=== PATIENT | female | born 1995 | race American Indian/Alaskan Native ===

== ENCOUNTER 2017-12-05 16:02 | Emergency (ER) | payer OTHER ==
[2017-12-05 19:23] LABS: Basophils # (Auto) 0.1 K/mm3 (0.0-0.1); Basophils % (Auto) 0.9 % (0.0-1.8); Eosinophils % (Auto) 0.2 % (0.0-4.3); Hematocrit 40.7 % (30.3-42.9); Lymphocytes # (Auto) 2.1 K/mm3 (1.2-5.4); Lymphocytes % (Auto) 31.3 % (13.4-35.0); Mean Corpuscular HGB Conc 34 % (30-34); Mean Corpuscular Hemoglobin 32 pg (28-32); Mean Corpuscular Volume 93 fl (79-97); Monocytes # (Auto) 0.6 K/mm3 (0.0-0.8); Monocytes % (Auto) 9.2 % (0.0-7.3); Platelet Count 260 K/mm3 (140-440); Red Blood Count 4.38 M/mm3 (3.65-5.03); Red Cell Distribution Width 12.1 % (13.2-15.2)
[2017-12-05 19:39] LABS: Bacteria,Urine 1+ /HPF (Negative); Bilirubin,Urine NEG (Negative); Blood,Urine NEG (Negative); Color,Urine Yellow (Yellow); Mucus,Urine FEW /HPF; Protein,Urine <15 mg/dL mg/dL (Negative); Urobilinogen,Urine < 2.0 mg/dL (<2.0)
[2017-12-05 19:43] LABS: BUN/Creatinine Ratio 10; Blood Urea Nitrogen 5 mg/dL (7-17); Calcium 9.8 mg/dL (8.4-10.2); Hemolysis Index 3
[2017-12-05 19:46] LABS: Amphetamine Screen,Urine PRESUMPTIVE NEGATIVE; Benzodiazepines Screen,Urine PRESUMPTIVE NEGATIVE; Cocaine Screen,Urine PRESUMPTIVE NEGATIVE; Methadone Screen,Urine PRESUMPTIVE NEGATIVE; Opiate Screen,Urine PRESUMPTIVE NEGATIVE
[2017-12-05 20:12] LABS: Cannabinoid Screen,Urine PRESUMPTIVE POSITIVE
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
[2017-12-05] MEDS ORDERED: ATIVAN PO PRN (21:23)
[2017-12-05] MEDS ORDERED: WATER FOR INJ (PF) ONE (23:04)
[2017-12-05] MEDS: GEODON IM PRN (23:51)
[2017-12-06 01:56] LABS: HCG Qualitative,Urine Negative (Negative)
[2017-12-06] MEDS ORDERED: WATER FOR INJ (PF) ONE (20:13)
[2017-12-06] MEDS: GEODON IM PRN (20:15)
[2017-12-07] MEDS: GEODON IM PRN (10:59)
--- NOTE | 2017-12-07 12:04 | Consultation ---
History of Present Illness - Reason for Consult Consult date: 12/07/17 Reason for consult: Mental Health Evaluation Requesting physician: SABRINA MALONE - Chief Complaint Chief complaint: "I am scared" - History of Present Psychiatric Illness 22 y.o. AA female brought in by law enforcement for psychotic, delusional behavior and threatening family members. Today the patient is anxious, paranoid , and delusional during the assessment. She expressed that someone is after her in the hospital. That someone is a "gang member" per the patient. She could not elaborate more about this gang member when asked. She had to be redirected several times to keep her on topic throughout the interview. The patient answers to most questions were not logical. This patient is not a good historian at this. She did deny SI/HI's and AVH's. Medications and Allergies Allergies Allergy/AdvReac Type Severity Reaction Status Date / Time No Known Allergies Allergy Verified 12/05/17 23:14 Active Meds: Active Medications Lorazepam (Ativan) 1 mg PO Q4H PRN PRN Reason: Agitation Ziprasidone (Geodon) 20 mg IM BID PRN PRN Reason: Agitation Last Admin: 12/07/17 10:59 Dose: 20 mg Past psychiatric history - Past Medical History Past Medical History: other (Unable to obtain) Past Surgical History: Other (Unable to obtain) - past Psychiatric treatment and history psychiatric treatment history: Possibly psy treatment in [place] per the patient. She could not confirm or deny a fam psy hx. - Social History Social history: lives with family Mental Status Exam - Vital signs Last Vital Signs Temp 98.6 F 12/07/17 07:50 Pulse 136 H 12/07/17 07:50 Resp 22 12/07/17 07:50 BP 134/87 12/07/17 07:50 Pulse Ox 98 12/07/17 07:50 - Exam Narrative exam: MSE: Appearance: anxious Behavior: regular eye contact Speech: regular rate and tone Mood: "scared" Affect: congruent to mood Thought Process: tangential Thought Content: denies SI/HI's and AVH's, paranoid, delusional Motor Activity: sitting up in bed Cognition: A/O x 3 Insight: poor Judgment: poor Results Result Diagrams: 12/05/17 18:40 12/05/17 18:40 All other labs normal. Assessment and Plan Assessment and plan: Impression: Unspecified Psychosis. Cannabis Use DO. Today the patient is anxious , paranoid, and delusional during the assessment. DDx: R/O Schizophrenia, R/O Bipolar DO with psychosis, R/O Substance Induced Psychosis Recommendation/Plan: Continue 1013 with placement to inpatient psy services. Start Zyprexa 5 mg PO HS for psychosis and Vistaril 25 mg PO BID for anxiety. Attempted to discuss possible metabolic side effects of Zyprexa with patient.
[2017-12-07] MEDS: VISTARIL PO SCH ×3 (13:24→23:15)
[2017-12-07] MEDS ORDERED: K-DUR PO ONE (18:55)
[2017-12-07] MEDS ORDERED: NACL 0.9% 1000 ML 1,000 ML IV ONE (18:55)
--- NOTE | 2017-12-07 18:57 | Emergency Department Report ---
Blank Doc - Documentation Documentation: Patient was denied admission to the mental health facility secondary to elevated heart rate and low potassium. We'll give patient a bolus of fluid and potassium and recheck her potassium and have the monitor her heart rate and vital signs. We'll encourage patient to drink more by mouth fluids
[2017-12-07] MEDS: KCL 10MEQ/100ML 10 MEQ/100 ML BAG IV SCH ×2 (21:30→23:12)
[2017-12-08] MEDS ORDERED: NACL 0.9% 1000 ML 1,000 ML ONE (00:37)
[2017-12-08] MEDS ORDERED: NACL 0.9% 1000 ML 1,000 ML IV ONE (01:12)
--- NOTE | 2017-12-08 01:38 | Emergency Department Report ---
Blank Doc - Documentation Documentation: I was made aware of patient's persistent tachycardia and hypokalemia and refusal by [facility] for acceptance. Patient receiving her first liter of normal saline now heart rate is 113 with several hundred ml remaining. She did receive 20 mEq of potassium via IV since she refuses to take by mouth. Magnesium was added to last lab draw and was within normal range. There was some improvement in patient's heart rate however, she remains tachycardic and has normal tsh. Patient is exhibiting signs and symptoms of psychosis and therefore Geodon IM was given to see if this helps to relax patient and improve tachycardia. EKG performed and shows sinus tachycardia rate [address] elevation or T-wave abnormalities QRS axis LXVI, QRS duration 84. Additional IV potassium ordered. Will reassess after treatment.
[2017-12-08] MEDS: KCL 10MEQ/100ML 10 MEQ/100 ML BAG IV SCH ×2 (02:16→03:50)
[2017-12-08] MEDS ORDERED: ATIVAN IM PRN (02:41)
[2017-12-08] MEDS: VISTARIL PO SCH (10:50)
--- NOTE | 2017-12-08 10:58 | Progress Note ---
Subjective - Reason for Consult Consult date: 12/08/17 Reason for consult: Psychiatry Follow-up - Chief Complaint Chief complaint: "The patient is nonverbal" 22 y.o. AA female brought in by law enforcement for psychotic, delusional behavior and threatening family members. Today the patient is calm, nonverbal with a catatonic presentation, and clenching a bible during the interview. She would not answer any questions when asked. Per the MAR, she refused her PO medication last night. No gestures of SI/HI's. Mental Status Exam - Vital signs Last Vital Signs Temp 98.9 F 12/08/17 02:05 Pulse 92 H 12/08/17 02:05 Resp 16 12/08/17 02:05 BP 119/60 12/08/17 02:05 Pulse Ox 98 12/08/17 02:05 - Exam Narrative exam: MSE: Appearance: calm Behavior: staring with abnormal blank rate Speech: unable to assess Mood: unable to assess Affect: blunted Thought Process: unable to assess Thought Content: unable to assess Motor Activity: sitting up in bed, psychomotor retardation Cognition: unable to assess Insight: unable to assess Judgment: unable to assess Assessment and Plan Impression: Unspecified Psychosis. Cannabis Use DO. Catatonia. Today the patient is non verbal during the assessment. DDx: R/O Schizophrenia, R/O Bipolar DO with psychosis, R/O Substance Induced Psychosis Recommendation/Plan: Continue 1013 with placement to inpatient psy services. Start Zyprexa 5 mg PO HS for psychosis and Ativan 1 mg IM TID for catatonia. Attempted to discuss possible metabolic side effects of Zyprexa with patient. Monitor the patient's oral intake.
[2017-12-08] MEDS: ATIVAN IM SCH ×2 (14:47→23:04)
[2017-12-08] MEDS ORDERED: GEODON IM SCH ×2 (22:00)
[2017-12-09] MEDS: ATIVAN IM SCH (09:55)
[2017-12-09] MEDS ORDERED: ATIVAN PO SCH (10:00)
--- NOTE | 2017-12-09 11:58 | Progress Note ---
Subjective - Reason for Consult Consult date: 12/09/17 Reason for consult: Psychiatry Follow-up - Chief Complaint Chief complaint: "I am scared" 22 y.o. AA female brought in by law enforcement for psychotic, delusional behavior and threatening family members. Today the patient is cooperative during the assessment. She continue to state that a gang member is following her in hospital. She stated that she is scared and fearful at this time. She stated that it's a spiritual warfare going on. She denies SI/HI's and VH's. She would not confirm or deny AH's. She denies any side effects of her medications. Per the staff, the patient is eating her meals. Mental Status Exam - Vital signs Last Vital Signs Temp 98.7 F 12/08/17 21:26 Pulse 96 H 12/08/17 21:26 Resp 17 12/08/17 21:26 BP 119/68 12/08/17 21:26 Pulse Ox 98 12/08/17 10:00 - Exam Narrative exam: MSE: Appearance: cooperative Behavior: blank rate improving Speech: regular rate and tone Mood: "scared" Affect: guarded Thought Process: disorganized, hyper pentecostal Thought Content: denies SI/HI's and VH's, paranoia, delusional Motor Activity: ambulatory Cognition: A/O x 3 Insight: poor Judgment: poor Assessment and Plan Impression: Unspecified Psychosis. Cannabis Use DO. Catatonia is improving. Today the patient is cooperative during the assessment. The patient is experiencing perceptual disturbances. DDx: R/O Schizophrenia, R/O Bipolar DO with psychosis, R/O Substance Induced Psychosis Recommendation/Plan: Continue 1013 with placement to inpatient psy services. Continue Zyprexa 5 mg PO HS for psychosis and modify Ativan 1 mg to PO BID for catatonia. Discussed possible metabolic side effects of Zyprexa with patient.
[2017-12-09] MEDS ORDERED: GEODON IM ONE (14:22)
[2017-12-09] MEDS ORDERED: GEODON IM PRN (14:24)
[2017-12-09 21:32] VITALS: BP 125/66
== END 2017-12-09 21:52 ==
LOC: ED 16:02 → EEVIPCON 16:02 → ED 12-09 21:52
DX: F31.9 Bipolar disorder, unspecified (principal)
CPT/HCPCS: 36415; 80048; 80307; 81001; 81025; 82550; 83735; 84132; 84443; 85025; 96365; 96366; 96372; 99285; G0480; J2060; J3480; J3486; J7030; 80320; 96361; Q0177

== ENCOUNTER 2019-10-10 21:11 | Emergency (ER) | payer MEDICAID ==
[2019-10-10 21:54] LABS: Basophils % (Auto) 0.5 % (0.0-1.8); Eosinophils # (Auto) 0.2 K/mm3 (0.0-0.4); Eosinophils % (Auto) 2.1 % (0.0-4.3); Hematocrit 36.5 % (30.3-42.9); Hemoglobin 12.3 gm/dl (10.1-14.3); Lymphocytes # (Auto) 2.1 K/mm3 (1.2-5.4); Lymphocytes % (Auto) 27.1 % (13.4-35.0); Mean Corpuscular HGB Conc 34 % (30-34); Mean Corpuscular Volume 93 fl (79-97); Monocytes # (Auto) 0.5 K/mm3 (0.0-0.8); Monocytes % (Auto) 6.8 % (0.0-7.3); Platelet Count 259 K/mm3 (140-440); Red Blood Count 3.95 M/mm3 (3.65-5.03); Red Cell Distribution Width 12.3 % (13.2-15.2)
--- NOTE | 2019-10-10 21:56 | Emergency Department Report ---
ED Psych HPI - General Chief Complaint: Psych Stated Complaint: SI Time Seen by Provider: 10/10/19 21:26 Source: EMS Mode of arrival: Stretcher - History of Present Illness Initial Comments: 24 yo femal w/ hx of bipolar d/o with psychotic features presents to ED via EMS for mental health evaluation. Per triage note, family called due to pt stating that she was going to jump off of the balcony and kill herself. EMS states that she was speaking of the devil and God en route. Pt is refusing to speak at this time. Pt will not answer questions. MD Complaint: suicidal ideation -: unknown Associated Psychiatric Symptoms: suicidal ideation Treatments Prior to Arrival: none If Self Harm: admits thoughts of - Related Data Home Medications Medication Instructions Recorded Confirmed Last Taken OLANzapine [ZyPREXA] 10 mg PO DAILY 10/11/19 10/11/19 Unknown Venlafaxine [Effexor 37.5mg tab] 37.5 mg PO DAILY 10/11/19 10/11/19 Unknown busPIRone [Buspar] 10 mg PO BID 10/11/19 10/11/19 Unknown Allergies Allergy/AdvReac Type Severity Reaction Status Date / Time No Known Allergies Allergy Verified 12/05/17 23:14 ED Review of Systems ROS: Stated complaint: SI Other details as noted in HPI Comment: Unobtainable due to pts medical conditions (pt refuses to speak) ED Past Medical Hx - Past Medical History Hx Psychiatric Treatment: Yes (poss. schizophrenia/bipolar) - Surgical History Past Surgical History?: No - Social History Smoking Status: Unknown if ever smoked - Medications Home Medications: Home Medications Medication Instructions Recorded Confirmed Last Taken Type OLANzapine [ZyPREXA] 10 mg PO DAILY 10/11/19 10/11/19 Unknown History Venlafaxine [Effexor 37.5mg tab] 37.5 mg PO DAILY 10/11/19 10/11/19 Unknown History busPIRone [Buspar] 10 mg PO BID 10/11/19 10/11/19 Unknown History ED Physical Exam - General Limitations: Other General appearance: alert, in no apparent distress - Head Head exam: Present: atraumatic, normocephalic - Eye Eye exam: Present: normal appearance, EOMI - ENT ENT exam: Present: mucous membranes moist - Neck Neck exam: Present: normal inspection - Respiratory Respiratory exam: Present: normal lung sounds bilaterally. Absent: respiratory distress - Cardiovascular Cardiovascular Exam: Present: regular rate, normal rhythm - GI/Abdominal GI/Abdominal exam: Absent: distended - Extremities Exam Extremities exam: Present: normal inspection - Neurological Exam Neurological exam: Present: alert, normal gait, other (moves all extremities) - Psychiatric Psychiatric exam: Present: flat affect - Skin Skin exam: Present: warm, dry, intact, normal color ED Course Vital Signs 10/10/19 10/10/19 10/11/19 21:17 21:33 02:22 Temperature 98.5 F 98.3 F Pulse Rate 96 H 86 Respiratory 18 18 18 Rate Blood Pressure 147/70 122/80 Blood Pressure [Left] O2 Sat by Pulse 98 96 Oximetry 10/11/19 19:35 Temperature 98.3 F Pulse Rate 80 Respiratory 16 Rate Blood Pressure Blood Pressure 118/59 [Left] O2 Sat by Pulse 100 Oximetry ED Medical Decision Making - Lab Data Result diagrams: 10/10/19 21:38 10/10/19 21:38 Critical care attestation.: If time is entered above; I have spent that time in minutes in the direct care of this critically ill patient, excluding procedure time. ED Disposition Clinical Impression: Acute psychosis, Suicidal ideation Disposition: DC/TX-65 PSY HOSP/PSY UNIT Is pt being admited?: No Condition: Stable Referrals: PRIMARY CARE, [Primary Care Provider] - 3-5 Days
[2019-10-10 22:13] LABS: BUN/Creatinine Ratio 15; Blood Urea Nitrogen 9 mg/dL (7-17); Calcium 9.1 mg/dL (8.4-10.2); Hemolysis Index 13
[2019-10-11] MEDS ORDERED: diphenhydrAMINE 25 MG CAP PO ONE ×2 (04:31→04:35)
[2019-10-11] MEDS ORDERED: LORazepam 2 MG/ML VIAL IM PRN (11:29)
[2019-10-11] MEDS ORDERED: HALOPERIDOL LACTATE 5 MG/1 ML INJ IM PRN (11:29)
[2019-10-11] MEDS: risperiDONE 1 MG TAB PO SCH ×2 (14:10→22:04)
[2019-10-11] MEDS: LORazepam 0.5 MG TAB PO SCH ×2 (14:10→22:04)
[2019-10-11 21:13] VITALS: BP 118/59
[2019-10-11] MEDS ORDERED: traZODone 50 MG TAB PO SCH (22:00)
[2019-10-11] MEDS ORDERED: MELATONIN 5 MG TAB PO PRN (22:00)
--- NOTE | 2019-10-12 10:20 | Consultation ---
History of Present Illness - Reason for Consult Consult date: 10/12/19 Reason for consult: SI with plan, psycotic features - History of Present Psychiatric Illness Lida Ramsey is a 24y/o female patient who was brought to the ER after family stated she was going to jump off a balcony and kill herself, and states the patient was talking to the devil, per chart. I attempted to interview the patient this morning, the patient is sitting up on her cot in the floor. She has her eyes closed and is reciting the Lord's Prayer out loud. When the patient is done praying she just sits there and did not speak. She does not respond to any questioning. She did not open her eyes. When I walked away, she started back praying out loud again. PAST PSYCHIATRIC HISTORY: Unable to obtain PAST MEDICAL HISTORY: Could not obtain Family Psychiatric History: Unable to obtain SOCIAL HISTORY Unable to obtain REVIEW OF SYSTEMS Unable to obtain MENTAL STATUS EXAMINATION Unable to obtain Assessment Szhizoaffective Disorder MEDICATIONS: Depakote DR 125mg po BID Lorazepam 0.5mg po BID Trazodone 50mg po qhs Increased Risperidone 1mg po BID Melatonin 5mg po qhs prn insomnia Risks, benefits and alternatives of medications discussed with the patient, questions answered and consent obtained from patient. PSYCHOTHERAPY: Supportive psychotherapy provided MEDICAL: Per primary team DELIRIUM PRECAUTIONS: Please re-orient patient frequently, keep lights on during the day, and minimize benzodiazepines and opiates as these medications could worsen patient's confusion. TRIM LINE WORKER: Per Medical Team DISPOSITION: The patient meets the requirement for acute inpatient psychiatric treatment. He may transfer to an acute psychiatric facility once medically cleared. The plan was discussed with the patient, including benefits and possible side effects of prescribed medications. He verbalized agreement and understanding Will continue to follow until the patient is improved enough for discharge or transferred. Thank you for the consult. Please contact with any questions and/or concerns. Medications and Allergies Allergies Allergy/AdvReac Type Severity Reaction Status Date / Time No Known Allergies Allergy Verified 12/05/17 23:14 Home Medications Medication Instructions Recorded Confirmed Last Taken Type OLANzapine [ZyPREXA] 10 mg PO DAILY 10/11/19 10/11/19 Unknown History Venlafaxine [Effexor 37.5mg tab] 37.5 mg PO DAILY 10/11/19 10/11/19 Unknown History busPIRone [Buspar] 10 mg PO BID 10/11/19 10/11/19 Unknown History Active Meds: Active Medications Haloperidol Lactate (Haldol) 5 mg IM Q6H PRN PRN Reason: Agitation Lorazepam (Ativan) 0.5 mg PO BID [facility] Last Admin: 10/11/19 22:04 Dose: Not Given Documented by: Lorazepam (Ativan) 1 mg IM Q6H PRN PRN Reason: Agitation Melatonin (Melatonin) 5 mg PO QHS PRN PRN Reason: Sleep Risperidone (Risperdal) 0.5 mg PO BID [facility] Last Admin: 10/11/19 22:04 Dose: Not Given Documented by: Trazodone HCl (Desyrel) 50 mg PO QHS [facility] Last Admin: 10/11/19 22:04 Dose: Not Given Documented by: Mental Status Exam - Vital signs Last Vital Signs Temp 98.3 F 10/11/19 19:35 Pulse 80 10/11/19 19:35 Resp 16 10/11/19 19:35 BP 118/59 10/11/19 19:35 Pulse Ox 100 10/11/19 19:35 Results Result Diagrams: 10/10/19 21:38 10/10/19 21:38 All other labs normal.
[2019-10-12] MEDS ORDERED: risperiDONE 1 MG TAB PO SCH (10:30)
[2019-10-12] MEDS ORDERED: DIVALPROEX DR 125 MG TAB PO SCH (11:00)
[2019-10-12] MEDS: LORazepam 0.5 MG TAB PO SCH (13:22)
[2019-10-12] MEDS: risperiDONE 1 MG TAB PO SCH (16:20)
== END 2019-10-12 17:00 ==
LOC: ED 21:11
DX: F23 Brief psychotic disorder (principal); R45.851 Suicidal ideations; F25.0 Schizoaffective disorder, bipolar type; Z79.899 Other long term (current) drug therapy
CPT/HCPCS: 36415; 80048; 80320; 84703; 85025; G0480

== ENCOUNTER 2020-08-17 16:52 | Inpatient (IN) | payer MEDICAID ==
--- NOTE | 2020-08-17 18:05 | Ultrasound Report ---
ULTRASOUND OBSTETRIC LIMITED ULTRASOUND BIOPHYSICAL PROFILE INDICATION / CLINICAL INFORMATION: NON REASSURING HEART TONES. COMPARISON: None available. FINDINGS: BREATHING MOVEMENT = 2 GROSS BODY MOVEMENT = 2 TONE = 2 QUALITATIVE AMNIOTIC FLUID VOLUME = 2 TOTAL BIOPHYSICAL SCORE = 8/8 AMNIOTIC FLUID INDEX (cm) = 6.2, decreased PRESENTATION: Cephalic. HEART RATE (beats per minute): 128 ADDITIONAL FINDINGS: None. IMPRESSION: 1. Biophysical Score = 8/8 2. Decreased FERNANDO of 6.2 cm. Signer Name: Myron Calderon MD Signed: 08/17/2020 6:01 PM Workstation Name: [id number]
[2020-08-17] MEDS ORDERED: ACETAMINOPHEN 325 MG TAB PO PRN (18:06)
[2020-08-17] MEDS ORDERED: DOCUSATE SODIUM 100 MG CAP PO PRN (18:06)
[2020-08-17] MEDS ORDERED: ONDANSETRON 4 MG/2 ML INJ IV PRN (18:06)
--- NOTE | 2020-08-17 18:20 | History and Physical Report ---
History of Present Illness Date of examination: 08/17/20 Chief complaint: pt sent from office d/t variables on NST History of present illness: EDC Confirmation: 09/11/2020 Past History : 4 Term Births: 1 Living Children: 1 Para: 1 Spont. Ab: 2 # 1 Delivery date: 2013 Weeks Gestation: 38 labor: no Delivery type: Hours of labor: 1hr Anesthesia type: none Delivery location: ID Infant Sex: Female weight: 5-11 Comments: precipitious laobr- arived to hospital fully dialted Risk Factors: Smoked Tobacco Use: Former smoker Cigarettes: Yes Year quit: 2 weeks ago Smokeless Tobacco Use: Never Drug use: no HIV high-risk behavior: no Alcohol use: no Exercise: no Seatbelt use: 100 % PAP Smear History: Date of Last PAP Smear: 05/24/2015 Results: normal Past Medical History: Bipolar Diseas Past Medical History Abnormal PAP: negative JONI Exposure: negative Infertility: negative Uterine Anomaly: negative Uterine Surgery (not C/S): negative Other Gynecologic Problems: negative Medical History Comments: biopolar d/o schophrenia Family Hx: DM HTN Stroke Breast Ca Lung CA Social Hx: single previous tobacco-currently d/c tobacco Infection History Hx of STD: chlamydia HIV Risk Eval: no Partner hx. of genital herpes: no Varicella/Chicken Pox Status: Immunized Genetic History Congenital Heart Defect: Mom: no Dewayne Disease: Mom: no Thalassemia Mom: no Neural Tube Defect Mom: no Down's Syndrome Mom: no Yoshi-Sachs Mom: no Sickle Cell Disease/Trait Mom: no Hemophilia Mom: no Muscular Dystrophy Mom: no Cystic Fibrosis Mom: no [place] Chorea Mom: no Mental Retardation Mom: no Fragile X Mom: no Other Genetic/Chromosomal Disorder Mom: no Child w/other defect Mom: no Comments/Counseling: autism- foc family cousin Enviromental Exposures Xray Exposure: no Medication, drug, or alcohol use since LMP: no Chemical/Other Exposure: no Exposure to Cat Liter: no Hx of Parvovirus (Fifth Disease): no Occupational Exposure to Children: none Active Medications (reviewed today): PLUS 27-1 MG ORAL TABLET ( VIT-FE FUMARATE-FA) 1 po Current Allergies (reviewed today): No known allergies Past History Past Medical History: other (see HPI) Past Surgical History: other (see HPI) [employer]ENDANT History: other (see HPI) Family/Genetic History: other (HPI) - Obstetrical History Expected Date of Delivery: 09/11/20 Actual Gestation: 36 Week(s) 3 Day(s) : 4 Para: 1 Hx # Term Pregnancies: 1 Number of Pregnancies: 0 Spontaneous Abortions: 2 Induced : 0 Number of Living Children: 1 Medications and Allergies Allergies Allergy/AdvReac Type Severity Reaction Status Date / Time No Known Allergies Allergy Verified 12/05/17 23:14 Home Medications Medication Instructions Recorded Confirmed Last Taken Type OLANzapine [ZyPREXA] 10 mg PO DAILY 10/11/19 10/11/19 Unknown History Venlafaxine [Effexor 37.5mg tab] 37.5 mg PO DAILY 10/11/19 10/11/19 Unknown History busPIRone [Buspar] 10 mg PO BID 10/11/19 10/11/19 Unknown History Review of Systems All systems: negative - Vital Signs Vital signs: Vital Signs Pulse BP 84 110/73 08/17/20 18:13 08/17/20 18:13 Temp Pulse Resp BP Pulse Ox 84 110/73 08/17/20 18:13 08/17/20 18:13 - Physical Exam Breasts: Positive: normal Cardiovascular: Regular rate Lungs: Positive: Normal air movement Abdomen: Positive: normal appearance, soft Genitourinary (Female): Positive: normal external genitalia, normal perenium Vulva: both: normal Vagina: Positive: normal moisture Uterus: Positive: normal size Anus/Rectum: Positive: normal perianal skin Extremities: Positive: normal Deep Tendon Reflex Grade: Normal +2 - Obstetrical FHR: category 1 Uterine Contraction Monitor Mode: External Uterine Contraction Frequency (min): 3-4 Uterine Contraction Duration: 60 Uterine Contraction Pattern: Regular Uterine Tone Measurement Phase: Contraction Uterine Contraction Intensity: Mild Results All other labs normal. Assessment and Plan 25y/o @ 36+3 weeks, admitted for observation overnight for low FERNANDO 6.2, BPP 10/10. Admission orders in EMR. - Patient Problems (1) 36 weeks gestation of Current Visit: Yes Status: Acute (2) GDM (gestational diabetes mellitus) Current Visit: Yes Status: Acute Qualifiers: Trimester: third trimester Plan to address problem: diet controlled GDM accuchecks consistent carb diet (3) Oligohydramnios Current Visit: Yes Status: Acute Qualifiers: Trimester: third trimester Plan to address problem: FERNANDO 6.2 BPP 12/24 IVF hydration overnight and recheck FERNANDO in AM
[2020-08-17] MEDS: LACTATED RINGERS 1,000 ML IV SCH (21:00)
[2020-08-17 22:50] LABS: Basophils % (Auto) 0.3 % (0.0-1.8); Eosinophils # (Auto) 0.1 K/mm3 (0.0-0.4); Hematocrit 34.9 % (30.3-42.9); Hemoglobin 11.5 gm/dl (10.1-14.3); Lymphocytes # (Auto) 1.8 K/mm3 (1.2-5.4); Mean Corpuscular HGB Conc 33 % (30-34); Mean Corpuscular Volume 92 fl (79-97); Monocytes # (Auto) 0.5 K/mm3 (0.0-0.8); Monocytes % (Auto) 5.9 % (0.0-7.3); Platelet Count 239 K/mm3 (140-440); Red Cell Distribution Width 12.7 % (13.2-15.2)
[2020-08-18] MEDS: LACTATED RINGERS 1,000 ML IV SCH ×3 (03:42→14:49)
[2020-08-18] MEDS ORDERED: ACETAMINOPHEN 500 MG TAB PO ONE (05:15)
--- NOTE | 2020-08-18 08:32 | Progress Note ---
Assessment and Plan A: 25 y.o. @ 36.4 wks, Non reactive NST in the office, low FERNANDO in triage. GDM- diet controlled. P: Will continue to monitor monitor tracing. At this time its category 1. Will monitor glucose levels. Currently WNL. Repeat FERNANDO scheduled for this AM. Will formulate plan of care after rpt FERNANDO completed. Subjective - Subjective Date of service: 08/18/20 (Pt states that she is doing well. ) Principal diagnosis: IUP @ 36.4 weeks, low FERNANDO Patient reports: movement normal, no new complaints, no loss of fluid, no vaginal bleeding, no contractions Objective - Vital Signs Vital Signs: Vital Signs - 12hr 08/17/20 08/17/20 08/17/20 21:10 21:50 22:42 Temperature 98.0 F Pulse Rate 90 89 89 Respiratory 20 Rate Blood Pressure 142/64 141/75 139/75 Blood Pressure [Right] O2 Sat by Pulse Oximetry 08/17/20 08/17/20 08/17/20 23:13 23:39 23:40 Temperature Pulse Rate 84 107 H 93 H Respiratory Rate Blood Pressure 111/59 Blood Pressure [Right] O2 Sat by Pulse 83 L 91 Oximetry 08/17/20 08/17/20 08/17/20 23:42 23:45 23:50 Temperature Pulse Rate 93 H 91 H 88 Respiratory Rate Blood Pressure 126/61 Blood Pressure [Right] O2 Sat by Pulse 95 97 Oximetry 08/17/20 08/18/20 08/18/20 23:55 00:00 00:01 Temperature Pulse Rate 98 H 91 H 90 Respiratory Rate Blood Pressure Blood Pressure [Right] O2 Sat by Pulse 97 96 94 Oximetry 08/18/20 08/18/20 08/18/20 00:05 00:10 00:12 Temperature Pulse Rate 92 H 87 88 Respiratory Rate Blood Pressure 121/60 Blood Pressure [Right] O2 Sat by Pulse 97 98 Oximetry 08/18/20 08/18/20 08/18/20 00:15 00:20 00:25 Temperature Pulse Rate 91 H 93 H 91 H Respiratory Rate Blood Pressure Blood Pressure [Right] O2 Sat by Pulse 96 96 97 Oximetry 08/18/20 08/18/20 08/18/20 00:30 00:35 00:40 Temperature Pulse Rate 95 H 92 H 94 H Respiratory Rate Blood Pressure Blood Pressure [Right] O2 Sat by Pulse 96 97 96 Oximetry 08/18/20 08/18/20 08/18/20 00:42 00:45 00:50 Temperature Pulse Rate 93 H 91 H 92 H Respiratory Rate Blood Pressure 120/59 Blood Pressure [Right] O2 Sat by Pulse 97 97 Oximetry 08/18/20 08/18/20 08/18/20 00:55 01:00 01:05 Temperature Pulse Rate 92 H 95 H 98 H Respiratory Rate Blood Pressure Blood Pressure [Right] O2 Sat by Pulse 97 97 97 Oximetry 08/18/20 08/18/20 08/18/20 01:10 01:12 01:15 Temperature Pulse Rate 99 H 90 98 H Respiratory Rate Blood Pressure 143/82 Blood Pressure [Right] O2 Sat by Pulse 97 97 Oximetry 08/18/20 08/18/20 08/18/20 01:20 01:25 01:30 Temperature Pulse Rate 92 H 96 H 99 H Respiratory Rate Blood Pressure Blood Pressure [Right] O2 Sat by Pulse 98 98 96 Oximetry 08/18/20 08/18/20 08/18/20 01:35 01:40 01:43 Temperature Pulse Rate 97 H 98 H 93 H Respiratory Rate Blood Pressure 127/60 Blood Pressure [Right] O2 Sat by Pulse 98 98 Oximetry 08/18/20 08/18/20 08/18/20 01:45 01:50 01:55 Temperature Pulse Rate 92 H 100 H 94 H Respiratory Rate Blood Pressure Blood Pressure [Right] O2 Sat by Pulse 97 97 98 Oximetry 08/18/20 08/18/20 08/18/20 02:14 02:17 02:19 Temperature 98.1 F Pulse Rate 102 H 97 H Respiratory 20 Rate Blood Pressure Blood Pressure [Right] O2 Sat by Pulse 97 94 99 Oximetry 08/18/20 08/18/20 08/18/20 02:24 02:29 02:34 Temperature Pulse Rate 92 H 92 H 91 H Respiratory Rate Blood Pressure Blood Pressure [Right] O2 Sat by Pulse 98 98 98 Oximetry 08/18/20 08/18/20 08/18/20 02:39 02:44 02:49 Temperature Pulse Rate 86 86 89 Respiratory Rate Blood Pressure Blood Pressure [Right] O2 Sat by Pulse 99 99 99 Oximetry 08/18/20 08/18/20 08/18/20 02:54 02:59 03:04 Temperature Pulse Rate 87 91 H 88 Respiratory Rate Blood Pressure Blood Pressure [Right] O2 Sat by Pulse 99 98 99 Oximetry 08/18/20 08/18/20 08/18/20 03:08 03:09 03:13 Temperature Pulse Rate 94 H 92 H Respiratory Rate Blood Pressure Blood Pressure [Right] O2 Sat by Pulse 94 84 90 Oximetry 08/18/20 08/18/20 08/18/20 03:15 03:23 03:32 Temperature Pulse Rate 66 129 H 65 Respiratory Rate Blood Pressure Blood Pressure [Right] O2 Sat by Pulse 91 88 96 Oximetry 08/18/20 08/18/20 08/18/20 03:33 03:38 03:43 Temperature Pulse Rate 94 H 90 86 Respiratory Rate Blood Pressure Blood Pressure [Right] O2 Sat by Pulse 81 L 96 100 Oximetry 08/18/20 08/18/20 08/18/20 03:48 03:51 03:53 Temperature Pulse Rate 87 85 Respiratory Rate Blood Pressure Blood Pressure [Right] O2 Sat by Pulse 98 78 L 100 Oximetry 08/18/20 08/18/20 08/18/20 03:58 04:03 04:09 Temperature Pulse Rate 86 81 78 Respiratory Rate Blood Pressure Blood Pressure [Right] O2 Sat by Pulse 100 98 99 Oximetry 08/18/20 08/18/20 08/18/20 04:14 04:16 04:19 Temperature Pulse Rate 86 80 79 Respiratory Rate Blood Pressure 120/59 Blood Pressure [Right] O2 Sat by Pulse 100 99 Oximetry 08/18/20 08/18/20 08/18/20 04:24 04:50 04:51 Temperature Pulse Rate 85 79 Respiratory Rate Blood Pressure Blood Pressure [Right] O2 Sat by Pulse 98 77 L 98 Oximetry 08/18/20 08/18/20 08/18/20 04:56 05:01 05:06 Temperature Pulse Rate 83 83 95 H Respiratory Rate Blood Pressure Blood Pressure [Right] O2 Sat by Pulse 99 100 99 Oximetry 08/18/20 08/18/20 08/18/20 05:11 05:16 05:21 Temperature Pulse Rate 72 86 76 Respiratory Rate Blood Pressure 123/86 Blood Pressure [Right] O2 Sat by Pulse 99 99 99 Oximetry 08/18/20 08/18/20 08/18/20 05:26 05:31 05:35 Temperature Pulse Rate 80 77 81 Respiratory Rate Blood Pressure Blood Pressure [Right] O2 Sat by Pulse 100 99 94 Oximetry 08/18/20 08/18/20 08/18/20 05:36 05:41 05:44 Temperature Pulse Rate 79 80 Respiratory Rate Blood Pressure 120/84 Blood Pressure [Right] O2 Sat by Pulse 99 100 91 Oximetry 08/18/20 08/18/20 08/18/20 05:46 05:51 05:56 Temperature Pulse Rate 78 78 82 Respiratory Rate Blood Pressure Blood Pressure [Right] O2 Sat by Pulse 100 100 99 Oximetry 08/18/20 08/18/20 08/18/20 06:01 06:06 06:11 Temperature Pulse Rate 76 85 88 Respiratory Rate Blood Pressure Blood Pressure [Right] O2 Sat by Pulse 98 98 100 Oximetry 08/18/20 08/18/20 08/18/20 06:16 06:21 06:26 Temperature Pulse Rate 73 76 72 Respiratory Rate Blood Pressure Blood Pressure [Right] O2 Sat by Pulse 100 100 100 Oximetry 08/18/20 08/18/20 08/18/20 06:31 06:36 06:41 Temperature Pulse Rate 74 75 80 Respiratory Rate Blood Pressure Blood Pressure [Right] O2 Sat by Pulse 100 100 100 Oximetry 08/18/20 08/18/20 08/18/20 06:46 06:51 06:56 Temperature Pulse Rate 76 80 84 Respiratory Rate Blood Pressure Blood Pressure [Right] O2 Sat by Pulse 100 100 100 Oximetry 08/18/20 08/18/20 08/18/20 06:59 07:07 07:12 Temperature Pulse Rate 77 90 91 H Respiratory Rate Blood Pressure 130/60 Blood Pressure [Right] O2 Sat by Pulse 98 98 Oximetry 08/18/20 08/18/20 08/18/20 07:17 07:22 07:27 Temperature Pulse Rate 85 84 93 H Respiratory Rate Blood Pressure Blood Pressure [Right] O2 Sat by Pulse 98 98 99 Oximetry 08/18/20 08/18/20 08/18/20 07:32 07:37 07:42 Temperature Pulse Rate 86 83 87 Respiratory Rate Blood Pressure Blood Pressure [Right] O2 Sat by Pulse 98 98 98 Oximetry 08/18/20 08/18/20 08/18/20 07:47 07:52 07:53 Temperature 97.7 F Pulse Rate 85 85 80 Respiratory 18 Rate Blood Pressure Blood Pressure 108/56 [Right] O2 Sat by Pulse 98 99 98 Oximetry 08/18/20 08/18/20 08/18/20 07:55 07:57 08:02 Temperature Pulse Rate 78 93 H 86 Respiratory Rate Blood Pressure 108/56 Blood Pressure [Right] O2 Sat by Pulse 99 98 Oximetry 08/18/20 08/18/20 08/18/20 08:07 08:12 08:17 Temperature Pulse Rate 88 86 91 H Respiratory Rate Blood Pressure Blood Pressure [Right] O2 Sat by Pulse 98 99 100 Oximetry 08/18/20 08/18/20 08:22 08:27 Temperature Pulse Rate 90 96 H Respiratory Rate Blood Pressure Blood Pressure [Right] O2 Sat by Pulse 100 99 Oximetry - Exam Narrative Exam: Pt denies vaginal bleeding, LOF, ctxs. States that she does not think her water has broken. We discussed plan of care for the day, awaiting rpt FERNANDO results. Pt verbalized understanding and agrees to the plan at this time. Breasts: deferred Cardiovascular: Regular rate Lungs: Normal air movement Abdomen: Present: normal appearance, soft Uterus: Present: normal FHR: category 1, other (Pt has some decelerations throughout the night. ) Uterine Contraction Monitor Mode: External Uterine Contraction Pattern: Absent Extremities: normal - Labs Labs: Abnormal Labs 08/17/20 22:14 RDW 12.7 L Laboratory Results - last 24 hr 08/17/20 08/17/20 08/18/20 22:14 22:14 07:57 WBC 7.8 RBC 3.80 Hgb 11.5 Hct 34.9 MCV 92 MCH 30 MCHC 33 RDW 12.7 L Plt Count 239 Lymph % (Auto) 23.0 [place] % (Auto) 5.9 Eos % (Auto) 1.0 Baso % (Auto) 0.3 Lymph # (Auto) 1.8 [place] # (Auto) 0.5 Eos # (Auto) 0.1 Baso # (Auto) 0.0 Seg Neutrophils % 69.8 Seg Neutrophils # 5.4 POC Glucose 78 Blood Type O POSITIVE Antibody Screen Negative
[2020-08-18] MEDS: PRENATAL VIT27-FE FUMARATE-FOLIC ACID VIT TAB PO SCH (09:39)
--- NOTE | 2020-08-18 10:15 | Ultrasound Report ---
Obstetrical ultrasound limited INDICATION: Evaluate FERNANDO. well-being FINDINGS: The FERNANDO measures 4.9, previously 3.9 on the 08/17/2020 exam. There is a single intrauterine g estation in the cephalic position with a heart rate of 123 bpm IMPRESSION: FERNANDO currently measures 4.9 increased from 3.9 yesterday. Signer Name: Andi Lozano MD Signed: 08/18/2020 10:10 AM Workstation Name: [id number]
--- NOTE | 2020-08-18 12:58 | Event Note ---
Date: 08/18/20 Sono today reads that fernando is "4.9cm increased from 3.9cm on 08/17/20" However, review of the images show that max pocket yesterday was 3.9 NOT THE TOTAL FERNANDO. TOTAL FERNANDO ON 08/17/20 WAS DOCUMENTED TO BE 6.2CM BY SONO PICTURES AND REPORT. PT HAS THEREFORE HAD A DECREASE IN FERNANDO WITH HYDRATION AND BEDREST AND IS NEWLY DIAGNOSED DM THAT HAVE NOT BEEN COMPLIANT WITH CARE. WILL CONSULT MFM AT THIS TIME FOR RECOMMENDATIONS IN TERMS OF MANAGEMENT OF THE OLIGO.
--- NOTE | 2020-08-18 14:52 | Event Note ---
Date: 08/18/20 Spoke with [facility] provider Dr. Richards and recommends delivery at this time due to olig. having varialbe decesl(cat 2 tracing at times), and being 36-37. Copy of recommendations as per Dr. Richards faxed to my office as well as labor and delivery. Will discuss plan of care with pt and address and questions or concerns she may have.
--- NOTE | 2020-08-18 17:26 | Progress Note ---
Assessment and Plan A: 25 y.o. @ 36.4 wks, GDM, Oligohydramnios. Now for IOL. Cervical exam 0.5/50/- 3. P: Will allow pt to shower and eat. Will start IOL with low dose Pitocin. Subjective - Subjective Date of service: 08/18/20 (Explained IOL process and why) Principal diagnosis: IUP @ 36.4 weeks, low FERNANDO Patient reports: movement normal, no new complaints, no loss of fluid, no vaginal bleeding, no contractions Objective - Vital Signs Vital Signs: Vital Signs - 12hr 08/18/20 08/18/20 08/18/20 05:26 05:31 05:35 Temperature Pulse Rate 80 77 81 Respiratory Rate Blood Pressure Blood Pressure [Right] O2 Sat by Pulse 100 99 94 Oximetry 08/18/20 08/18/20 08/18/20 05:36 05:41 05:44 Temperature Pulse Rate 79 80 Respiratory Rate Blood Pressure 120/84 Blood Pressure [Right] O2 Sat by Pulse 99 100 91 Oximetry 08/18/20 08/18/20 08/18/20 05:46 05:51 05:56 Temperature Pulse Rate 78 78 82 Respiratory Rate Blood Pressure Blood Pressure [Right] O2 Sat by Pulse 100 100 99 Oximetry 08/18/20 08/18/20 08/18/20 06:01 06:06 06:11 Temperature Pulse Rate 76 85 88 Respiratory Rate Blood Pressure Blood Pressure [Right] O2 Sat by Pulse 98 98 100 Oximetry 08/18/20 08/18/20 08/18/20 06:16 06:21 06:26 Temperature Pulse Rate 73 76 72 Respiratory Rate Blood Pressure Blood Pressure [Right] O2 Sat by Pulse 100 100 100 Oximetry 08/18/20 08/18/20 08/18/20 06:31 06:36 06:41 Temperature Pulse Rate 74 75 80 Respiratory Rate Blood Pressure Blood Pressure [Right] O2 Sat by Pulse 100 100 100 Oximetry 08/18/20 08/18/20 08/18/20 06:46 06:51 06:56 Temperature Pulse Rate 76 80 84 Respiratory Rate Blood Pressure Blood Pressure [Right] O2 Sat by Pulse 100 100 100 Oximetry 08/18/20 08/18/20 08/18/20 06:59 07:07 07:12 Temperature Pulse Rate 77 90 91 H Respiratory Rate Blood Pressure 130/60 Blood Pressure [Right] O2 Sat by Pulse 98 98 Oximetry 08/18/20 08/18/20 08/18/20 07:17 07:22 07:27 Temperature Pulse Rate 85 84 93 H Respiratory Rate Blood Pressure Blood Pressure [Right] O2 Sat by Pulse 98 98 99 Oximetry 08/18/20 08/18/20 08/18/20 07:32 07:37 07:42 Temperature Pulse Rate 86 83 87 Respiratory Rate Blood Pressure Blood Pressure [Right] O2 Sat by Pulse 98 98 98 Oximetry 08/18/20 08/18/20 08/18/20 07:47 07:52 07:53 Temperature 97.7 F Pulse Rate 85 85 80 Respiratory 18 Rate Blood Pressure Blood Pressure 108/56 [Right] O2 Sat by Pulse 98 99 98 Oximetry 08/18/20 08/18/20 08/18/20 07:55 07:57 08:02 Temperature Pulse Rate 78 93 H 86 Respiratory Rate Blood Pressure 108/56 Blood Pressure [Right] O2 Sat by Pulse 99 98 Oximetry 08/18/20 08/18/20 08/18/20 08:07 08:12 08:17 Temperature Pulse Rate 88 86 91 H Respiratory Rate Blood Pressure Blood Pressure [Right] O2 Sat by Pulse 98 99 100 Oximetry 08/18/20 08/18/20 08/18/20 08:22 08:27 08:32 Temperature Pulse Rate 90 96 H 80 Respiratory Rate Blood Pressure Blood Pressure [Right] O2 Sat by Pulse 100 99 99 Oximetry 08/18/20 08/18/20 08/18/20 08:37 08:42 08:47 Temperature Pulse Rate 88 76 92 H Respiratory Rate Blood Pressure Blood Pressure [Right] O2 Sat by Pulse 98 99 99 Oximetry 08/18/20 08/18/20 08/18/20 08:52 08:57 09:02 Temperature Pulse Rate 77 87 90 Respiratory Rate Blood Pressure Blood Pressure [Right] O2 Sat by Pulse 99 98 98 Oximetry 08/18/20 08/18/20 08/18/20 09:07 09:12 09:17 Temperature Pulse Rate 85 86 91 H Respiratory Rate Blood Pressure Blood Pressure [Right] O2 Sat by Pulse 98 98 98 Oximetry 08/18/20 08/18/20 08/18/20 09:22 09:27 09:32 Temperature Pulse Rate 89 89 103 H Respiratory Rate Blood Pressure Blood Pressure [Right] O2 Sat by Pulse 98 98 99 Oximetry 08/18/20 08/18/20 08/18/20 09:37 09:42 09:47 Temperature Pulse Rate 87 86 86 Respiratory Rate Blood Pressure Blood Pressure [Right] O2 Sat by Pulse 98 99 99 Oximetry 08/18/20 08/18/20 08/18/20 09:52 09:57 10:02 Temperature Pulse Rate 87 101 H 85 Respiratory Rate Blood Pressure Blood Pressure [Right] O2 Sat by Pulse 99 99 98 Oximetry 08/18/20 08/18/20 08/18/20 10:07 10:12 10:17 Temperature Pulse Rate 84 84 84 Respiratory Rate Blood Pressure Blood Pressure [Right] O2 Sat by Pulse 99 98 98 Oximetry 08/18/20 08/18/20 08/18/20 10:21 10:22 10:27 Temperature 97.8 F Pulse Rate 86 89 90 Respiratory 16 Rate Blood Pressure 114/57 Blood Pressure 114/57 [Right] O2 Sat by Pulse 99 98 99 Oximetry 08/18/20 08/18/20 08/18/20 10:32 10:37 10:51 Temperature Pulse Rate 89 96 H 94 H Respiratory Rate Blood Pressure Blood Pressure [Right] O2 Sat by Pulse 98 99 100 Oximetry 08/18/20 08/18/20 08/18/20 10:56 11:01 11:06 Temperature Pulse Rate 88 87 91 H Respiratory Rate Blood Pressure Blood Pressure [Right] O2 Sat by Pulse 99 98 98 Oximetry 08/18/20 08/18/20 08/18/20 11:11 11:16 11:21 Temperature Pulse Rate 86 90 86 Respiratory Rate Blood Pressure Blood Pressure [Right] O2 Sat by Pulse 98 98 98 Oximetry 08/18/20 08/18/20 08/18/20 11:26 11:31 11:36 Temperature Pulse Rate 89 86 84 Respiratory Rate Blood Pressure Blood Pressure [Right] O2 Sat by Pulse 98 97 98 Oximetry 08/18/20 08/18/20 08/18/20 11:41 11:46 11:51 Temperature Pulse Rate 88 84 90 Respiratory Rate Blood Pressure Blood Pressure [Right] O2 Sat by Pulse 99 99 98 Oximetry 08/18/20 08/18/20 08/18/20 11:56 12:01 12:06 Temperature Pulse Rate 89 100 H 92 H Respiratory Rate Blood Pressure Blood Pressure [Right] O2 Sat by Pulse 99 99 99 Oximetry 08/18/20 08/18/20 08/18/20 12:11 12:16 12:21 Temperature Pulse Rate 101 H 99 H 94 H Respiratory Rate Blood Pressure Blood Pressure [Right] O2 Sat by Pulse 100 98 99 Oximetry 08/18/20 08/18/20 08/18/20 12:26 12:31 12:36 Temperature Pulse Rate 87 85 82 Respiratory Rate Blood Pressure Blood Pressure [Right] O2 Sat by Pulse 100 99 98 Oximetry 08/18/20 08/18/20 08/18/20 12:41 12:46 12:51 Temperature Pulse Rate 83 83 95 H Respiratory Rate Blood Pressure Blood Pressure [Right] O2 Sat by Pulse 99 99 100 Oximetry 08/18/20 08/18/20 08/18/20 12:56 13:01 13:06 Temperature Pulse Rate 82 85 88 Respiratory Rate Blood Pressure Blood Pressure [Right] O2 Sat by Pulse 100 100 100 Oximetry 08/18/20 08/18/20 08/18/20 13:11 13:16 13:21 Temperature Pulse Rate 94 H 98 H 94 H Respiratory Rate Blood Pressure Blood Pressure [Right] O2 Sat by Pulse 100 100 99 Oximetry 08/18/20 08/18/20 08/18/20 13:26 13:31 13:36 Temperature Pulse Rate 96 H 94 H 97 H Respiratory Rate Blood Pressure Blood Pressure [Right] O2 Sat by Pulse 99 100 99 Oximetry 08/18/20 08/18/20 08/18/20 13:50 13:55 14:00 Temperature Pulse Rate 101 H 94 H 85 Respiratory Rate Blood Pressure Blood Pressure [Right] O2 Sat by Pulse 99 99 99 Oximetry 08/18/20 08/18/20 08/18/20 14:05 14:10 14:15 Temperature Pulse Rate 92 H 97 H 90 Respiratory Rate Blood Pressure Blood Pressure [Right] O2 Sat by Pulse 99 99 99 Oximetry 08/18/20 08/18/20 08/18/20 14:20 14:25 14:30 Temperature Pulse Rate 93 H 92 H 97 H Respiratory Rate Blood Pressure Blood Pressure [Right] O2 Sat by Pulse 98 99 99 Oximetry 08/18/20 08/18/20 08/18/20 14:35 14:40 14:45 Temperature Pulse Rate 97 H 93 H 96 H Respiratory Rate Blood Pressure Blood Pressure [Right] O2 Sat by Pulse 99 99 100 Oximetry 08/18/20 08/18/20 08/18/20 14:50 14:55 15:00 Temperature Pulse Rate 102 H 98 H 100 H Respiratory 16 Rate Blood Pressure 119/66 Blood Pressure [Right] O2 Sat by Pulse 98 100 99 Oximetry 08/18/20 08/18/20 08/18/20 15:32 15:37 15:42 Temperature Pulse Rate 95 H 95 H 91 H Respiratory Rate Blood Pressure Blood Pressure [Right] O2 Sat by Pulse 98 99 99 Oximetry 08/18/20 08/18/20 08/18/20 15:47 15:52 15:57 Temperature Pulse Rate 90 91 H 88 Respiratory Rate Blood Pressure Blood Pressure [Right] O2 Sat by Pulse 99 99 99 Oximetry 08/18/20 08/18/20 08/18/20 16:02 16:07 16:12 Temperature Pulse Rate 87 92 H 92 H Respiratory Rate Blood Pressure Blood Pressure [Right] O2 Sat by Pulse 100 100 100 Oximetry 08/18/20 08/18/20 08/18/20 16:17 16:22 16:27 Temperature Pulse Rate 91 H 99 H 105 H Respiratory Rate Blood Pressure Blood Pressure [Right] O2 Sat by Pulse 100 100 100 Oximetry 08/18/20 08/18/20 08/18/20 16:32 16:37 16:42 Temperature Pulse Rate 97 H 99 H 85 Respiratory Rate Blood Pressure Blood Pressure [Right] O2 Sat by Pulse 99 99 100 Oximetry 08/18/20 08/18/20 08/18/20 16:47 16:52 16:55 Temperature Pulse Rate 100 H 88 83 Respiratory Rate Blood Pressure Blood Pressure [Right] O2 Sat by Pulse 100 99 88 Oximetry 08/18/20 08/18/20 08/18/20 16:57 17:02 17:07 Temperature Pulse Rate 85 89 91 H Respiratory Rate Blood Pressure Blood Pressure [Right] O2 Sat by Pulse 99 100 100 Oximetry 08/18/20 08/18/20 08/18/20 17:12 17:15 17:17 Temperature Pulse Rate 95 H 55 L 102 H Respiratory Rate Blood Pressure Blood Pressure [Right] O2 Sat by Pulse 99 85 99 Oximetry - Exam Narrative Exam: Explained the plan of care to patient. We will let her shower, eat dinner, and then start low dose Pitocin. We discussed why she needed to be induced: GDM, and oligohydramnios. Pt verbalized understanding. Breasts: deferred Cardiovascular: Regular rate Lungs: Normal air movement Abdomen: Present: normal appearance, soft Vulva: both: normal Uterus: Present: normal FHR: category 1 Uterine Contraction Monitor Mode: External Cervical Dilatation: 0.5 Cervical Effacement Percentage: 50 station: -3 Uterine Contraction Pattern: Absent Uterine Tone Measurement Phase: Resting Extremities: normal - Labs Labs: Abnormal Labs 08/17/20 22:14 RDW 12.7 L Laboratory Results - last 24 hr 08/17/20 08/17/20 08/18/20 22:14 22:14 07:57 WBC 7.8 RBC 3.80 Hgb 11.5 Hct 34.9 MCV 92 MCH 30 MCHC 33 RDW 12.7 L Plt Count 239 Lymph % (Auto) 23.0 [place] % (Auto) 5.9 Eos % (Auto) 1.0 Baso % (Auto) 0.3 Lymph # (Auto) 1.8 [place] # (Auto) 0.5 Eos # (Auto) 0.1 Baso # (Auto) 0.0 Seg Neutrophils % 69.8 Seg Neutrophils # 5.4 POC Glucose 78 Coronavirus (PCR) Blood Type O POSITIVE Antibody Screen Negative 08/18/20 08/18/20 09:00 12:05 WBC RBC Hgb Hct MCV MCH MCHC RDW Plt Count Lymph % (Auto) [place] % (Auto) Eos % (Auto) Baso % (Auto) Lymph # (Auto) [place] # (Auto) Eos # (Auto) Baso # (Auto) Seg Neutrophils % Seg Neutrophils # POC Glucose 80 Coronavirus (PCR) Negative Blood Type Antibody Screen
[2020-08-18] MEDS ORDERED: miSOPROStol 200 MCG TAB PR PRN (17:30)
[2020-08-18] MEDS ORDERED: LACTATED RINGERS 1,000 ML IV SCH (17:30)
[2020-08-18] MEDS ORDERED: OXYTOCIN 10 UNIT/1 ML INJ IM PRN (17:30)
[2020-08-18] MEDS ORDERED: NALOXONE 0.4 MG/1 ML INJ IV PRN (17:30)
[2020-08-18] MEDS ORDERED: MINERAL OIL 30 ML ORAL LIQD PO PRN (17:30)
[2020-08-18] MEDS ORDERED: CARBOPROST TROMETHAMINE 250 MCG/1 ML INJ IM PRN (17:30)
[2020-08-18] MEDS ORDERED: PROMETHAZINE 25 MG TAB PO PRN (17:30)
[2020-08-18] MEDS ORDERED: TERBUTALINE 1 MG/1 ML INJ SUB-Q PRN (17:30)
[2020-08-18] MEDS ORDERED: LOPERAMIDE 2 MG CAP PO PRN (17:30)
[2020-08-18] MEDS ORDERED: ePHEDrine SULFATE 50 MG/1 ML INJ IV PRN (17:30)
[2020-08-18] MEDS ORDERED: METHYLERGONOVINE MALEATE 0.2 MG/ML VIAL IM PRN (17:30)
[2020-08-18] MEDS ORDERED: OXYTOCIN DRIP 30 UNITS/500 ML BAG IV SCH ×3 (18:00→20:00)
[2020-08-19] MEDS: LACTATED RINGERS 1,000 ML IV SCH ×4 (00:37→22:57)
--- NOTE | 2020-08-19 03:15 | Event Note ---
Date: 08/19/20 Tracing reviewed. Contractions q3 minutes at this time and overall cat 1 tracing. Pt just noted to have late decel with last contractions. Will con't to closely monitor.
[2020-08-19] MEDS: fentaNYL 100 MCG/2 ML INJ IV PRN ×2 (04:18→11:52)
--- NOTE | 2020-08-19 07:58 | Progress Note ---
Assessment and Plan A: 25 y.o. @ 36.5 wks, IOL d/t GDM, Oligohydramnios. Cervical exam 1.5/50/-3. P: Stop low dose Pitocin. Allow pt to shower and eat breakfast. Restart Pitocin after shower and eating. Subjective - Subjective Date of service: 08/19/20 (Pt states that she is hungry.) Principal diagnosis: IUP @ 36.5 weeks, IOL d/t GDM ,Oligo Patient reports: movement normal, contractions, no new complaints, no loss of fluid, no vaginal bleeding Objective - Vital Signs Vital Signs: Vital Signs - 12hr 08/18/20 08/18/20 08/18/20 20:16 20:21 20:26 Temperature Pulse Rate 76 104 H 98 H Respiratory Rate Blood Pressure Blood Pressure [Left] O2 Sat by Pulse 99 100 99 Oximetry 08/18/20 08/18/20 08/18/20 20:31 20:36 20:41 Temperature Pulse Rate 88 97 H 99 H Respiratory Rate Blood Pressure Blood Pressure [Left] O2 Sat by Pulse 98 99 100 Oximetry 08/18/20 08/18/20 08/18/20 20:46 20:51 20:56 Temperature Pulse Rate 90 98 H 92 H Respiratory Rate Blood Pressure Blood Pressure [Left] O2 Sat by Pulse 99 99 100 Oximetry 08/18/20 08/18/20 08/18/20 21:01 21:07 21:12 Temperature Pulse Rate 90 89 90 Respiratory Rate Blood Pressure Blood Pressure [Left] O2 Sat by Pulse 99 100 97 Oximetry 08/18/20 08/18/20 08/18/20 21:17 21:22 21:27 Temperature Pulse Rate 103 H 95 H 91 H Respiratory Rate Blood Pressure Blood Pressure [Left] O2 Sat by Pulse 99 100 100 Oximetry 08/18/20 08/18/20 08/18/20 21:32 21:36 21:37 Temperature Pulse Rate 97 H 95 H 88 Respiratory Rate Blood Pressure Blood Pressure [Left] O2 Sat by Pulse 99 86 100 Oximetry 08/18/20 08/18/20 08/19/20 21:42 21:46 00:14 Temperature Pulse Rate 87 91 H 86 Respiratory Rate Blood Pressure 115/58 Blood Pressure [Left] O2 Sat by Pulse 100 94 Oximetry 08/19/20 08/19/20 08/19/20 00:15 01:40 02:43 Temperature 97.7 F Pulse Rate 86 81 85 Respiratory 17 Rate Blood Pressure 119/58 127/60 Blood Pressure 115/58 [Left] O2 Sat by Pulse Oximetry 08/19/20 08/19/20 08/19/20 03:41 04:18 05:40 Temperature 97.8 F Pulse Rate 83 86 Respiratory 15 13 Rate Blood Pressure 125/59 127/66 Blood Pressure 127/66 [Left] O2 Sat by Pulse 100 Oximetry 08/19/20 08/19/20 08/19/20 05:54 05:56 05:59 Temperature Pulse Rate 93 H 86 84 Respiratory Rate Blood Pressure Blood Pressure [Left] O2 Sat by Pulse 89 100 90 Oximetry 08/19/20 08/19/20 08/19/20 06:01 06:06 06:11 Temperature Pulse Rate 80 91 H 80 Respiratory Rate Blood Pressure Blood Pressure [Left] O2 Sat by Pulse 91 96 100 Oximetry 08/19/20 08/19/20 08/19/20 06:16 06:21 06:26 Temperature Pulse Rate 79 86 79 Respiratory Rate Blood Pressure Blood Pressure [Left] O2 Sat by Pulse 100 100 100 Oximetry 08/19/20 08/19/20 08/19/20 06:31 06:36 06:40 Temperature Pulse Rate 77 75 83 Respiratory Rate Blood Pressure 136/60 Blood Pressure [Left] O2 Sat by Pulse 100 100 Oximetry 08/19/20 08/19/20 08/19/20 06:41 06:46 06:51 Temperature Pulse Rate 82 79 85 Respiratory Rate Blood Pressure Blood Pressure [Left] O2 Sat by Pulse 100 99 98 Oximetry 08/19/20 08/19/20 08/19/20 06:54 07:00 07:05 Temperature Pulse Rate 97 H 67 79 Respiratory Rate Blood Pressure Blood Pressure [Left] O2 Sat by Pulse 88 83 L 98 Oximetry 08/19/20 08/19/20 08/19/20 07:10 07:15 07:20 Temperature Pulse Rate 81 72 78 Respiratory Rate Blood Pressure Blood Pressure [Left] O2 Sat by Pulse 98 99 98 Oximetry 08/19/20 08/19/20 08/19/20 07:25 07:30 07:35 Temperature Pulse Rate 75 81 73 Respiratory Rate Blood Pressure Blood Pressure [Left] O2 Sat by Pulse 98 98 99 Oximetry 04/08/0608/19/20 08/19/20 07:40 07:45 07:50 Temperature Pulse Rate 74 79 77 Respiratory Rate Blood Pressure 124/62 Blood Pressure [Left] O2 Sat by Pulse 98 98 100 Oximetry - Exam Breasts: deferred Cardiovascular: Regular rate Lungs: Normal air movement Abdomen: Present: normal appearance, soft Vulva: both: normal Uterus: Present: normal FHR: category 1 Uterine Contraction Monitor Mode: External Cervical Dilatation: 1.5 Cervical Effacement Percentage: 50 station: -3 Uterine Contraction Pattern: Regular Uterine Tone Measurement Phase: Resting Uterine Contraction Intensity: Mild - Labs Labs: Abnormal Labs 08/17/20 08/18/20 22:14 16:10 RDW 12.7 L POC Glucose 111 H Laboratory Results - last 24 hr 08/18/20 08/18/20 08/18/20 07:57 09:00 12:05 POC Glucose 78 80 Coronavirus (PCR) Negative 08/18/20 08/19/20 16:10 00:12 POC Glucose 111 H 94 Coronavirus (PCR)
[2020-08-19] MEDS: PRENATAL VIT27-FE FUMARATE-FOLIC ACID VIT TAB PO SCH (10:30)
[2020-08-19] MEDS ORDERED: DINOPROSTONE 10 MG VAG SUPP VG ONE (17:23)
--- NOTE | 2020-08-19 17:53 | Progress Note ---
Assessment and Plan A: 25 y.o. @ 36.5 wks. IOL for oligohydramnios and GDM. Cervical exam essentially unchanged from AM exam. P: Pitocin has been stopped and pt has eaten dinner. Cervidil placed. Subjective - Subjective Date of service: 08/19/20 (Cervidil placed) Principal diagnosis: IUP @ 36.5 weeks, IOL d/t GDM ,Oligo Patient reports: movement normal, contractions, no new complaints, no loss of fluid, no vaginal bleeding Objective - Vital Signs Vital Signs: Vital Signs - 12hr 08/19/20 08/19/20 08/19/20 05:54 05:56 05:59 Temperature Pulse Rate 93 H 86 84 Respiratory Rate Blood Pressure O2 Sat by Pulse 89 100 90 Oximetry 08/19/20 08/19/20 08/19/20 06:01 06:06 06:11 Temperature Pulse Rate 80 91 H 80 Respiratory Rate Blood Pressure O2 Sat by Pulse 91 96 100 Oximetry 08/19/20 08/19/20 08/19/20 06:16 06:21 06:26 Temperature Pulse Rate 79 86 79 Respiratory Rate Blood Pressure O2 Sat by Pulse 100 100 100 Oximetry 08/19/20 08/19/20 08/19/20 06:31 06:36 06:40 Temperature Pulse Rate 77 75 83 Respiratory Rate Blood Pressure 136/60 O2 Sat by Pulse 100 100 Oximetry 08/19/20 08/19/20 08/19/20 06:41 06:46 06:51 Temperature Pulse Rate 82 79 85 Respiratory Rate Blood Pressure O2 Sat by Pulse 100 99 98 Oximetry 08/19/20 08/19/20 08/19/20 06:54 07:00 07:05 Temperature Pulse Rate 97 H 67 79 Respiratory Rate Blood Pressure O2 Sat by Pulse 88 83 L 98 Oximetry 08/19/20 08/19/20 08/19/20 07:10 07:15 07:20 Temperature Pulse Rate 81 72 78 Respiratory Rate Blood Pressure O2 Sat by Pulse 98 99 98 Oximetry 08/19/20 08/19/20 08/19/20 07:25 07:30 07:35 Temperature Pulse Rate 75 81 73 Respiratory Rate Blood Pressure O2 Sat by Pulse 98 98 99 Oximetry 08/19/20 08/19/20 08/19/20 07:40 07:45 07:50 Temperature Pulse Rate 74 79 77 Respiratory Rate Blood Pressure 124/62 O2 Sat by Pulse 98 98 100 Oximetry 08/19/20 08/19/20 08/19/20 07:55 08:00 08:05 Temperature 97.7 F Pulse Rate 81 82 87 Respiratory 15 Rate Blood Pressure O2 Sat by Pulse 98 98 98 Oximetry 08/19/20 08/19/20 08/19/20 08:10 08:15 08:20 Temperature Pulse Rate 79 81 82 Respiratory Rate Blood Pressure O2 Sat by Pulse 98 98 99 Oximetry 08/19/20 08/19/20 08/19/20 08:25 08:30 09:49 Temperature Pulse Rate 89 80 90 Respiratory Rate Blood Pressure 132/68 O2 Sat by Pulse 99 99 Oximetry 08/19/20 08/19/20 08/19/20 09:51 09:56 10:01 Temperature Pulse Rate 91 H 91 H 98 H Respiratory Rate Blood Pressure O2 Sat by Pulse 97 97 98 Oximetry 08/19/20 08/19/20 08/19/20 10:06 10:11 10:16 Temperature Pulse Rate 96 H 101 H 84 Respiratory Rate Blood Pressure O2 Sat by Pulse 98 97 100 Oximetry 08/19/20 08/19/20 08/19/20 10:21 10:26 10:31 Temperature Pulse Rate 85 86 86 Respiratory Rate Blood Pressure O2 Sat by Pulse 99 99 100 Oximetry 08/19/20 08/19/20 08/19/20 10:36 10:45 10:50 Temperature Pulse Rate 88 103 H 94 H Respiratory Rate Blood Pressure O2 Sat by Pulse 99 100 99 Oximetry 08/19/20 08/19/20 08/19/20 10:55 11:00 11:05 Temperature Pulse Rate 89 84 85 Respiratory Rate Blood Pressure 124/74 O2 Sat by Pulse 98 98 99 Oximetry 08/19/20 08/19/20 08/19/20 11:10 11:15 11:20 Temperature Pulse Rate 95 H 94 H 94 H Respiratory Rate Blood Pressure O2 Sat by Pulse 99 98 98 Oximetry 08/19/20 08/19/20 08/19/20 11:25 11:30 11:36 Temperature 98.0 F Pulse Rate 96 H 100 H Respiratory 16 Rate Blood Pressure O2 Sat by Pulse 99 99 Oximetry 08/19/20 08/19/20 08/19/20 11:41 11:46 11:51 Temperature Pulse Rate 91 H 98 H 88 Respiratory Rate Blood Pressure O2 Sat by Pulse 99 98 99 Oximetry 08/19/20 08/19/20 08/19/20 11:56 12:01 12:06 Temperature Pulse Rate 91 H 94 H 94 H Respiratory Rate Blood Pressure O2 Sat by Pulse 98 98 99 Oximetry 08/19/20 08/19/20 08/19/20 12:11 12:16 12:21 Temperature Pulse Rate 95 H 93 H 81 Respiratory Rate Blood Pressure O2 Sat by Pulse 99 99 99 Oximetry 08/19/20 08/19/20 08/19/20 12:26 12:31 12:36 Temperature Pulse Rate 87 85 79 Respiratory Rate Blood Pressure 112/56 O2 Sat by Pulse 98 99 98 Oximetry 08/19/20 08/19/20 08/19/20 12:41 12:46 12:51 Temperature Pulse Rate 77 79 75 Respiratory Rate Blood Pressure O2 Sat by Pulse 99 99 99 Oximetry 08/19/20 08/19/20 08/19/20 12:56 12:58 13:01 Temperature Pulse Rate 74 75 73 Respiratory Rate Blood Pressure 116/60 O2 Sat by Pulse 99 100 Oximetry 08/19/20 08/19/20 08/19/20 13:06 13:11 13:15 Temperature Pulse Rate 76 71 75 Respiratory Rate Blood Pressure O2 Sat by Pulse 100 100 89 Oximetry 08/19/20 08/19/20 08/19/20 13:16 13:21 13:26 Temperature Pulse Rate 73 75 78 Respiratory Rate Blood Pressure O2 Sat by Pulse 100 100 100 Oximetry 08/19/20 08/19/20 08/19/20 13:31 13:36 13:41 Temperature Pulse Rate 80 75 74 Respiratory Rate Blood Pressure O2 Sat by Pulse 100 100 100 Oximetry 08/19/20 08/19/20 08/19/20 13:46 13:51 14:05 Temperature Pulse Rate 76 84 90 Respiratory Rate Blood Pressure O2 Sat by Pulse 100 100 99 Oximetry 08/19/20 08/19/20 08/19/20 14:10 14:15 14:20 Temperature Pulse Rate 93 H 79 81 Respiratory Rate Blood Pressure O2 Sat by Pulse 100 100 100 Oximetry 08/19/20 08/19/20 08/19/20 14:25 14:30 14:35 Temperature Pulse Rate 80 82 79 Respiratory Rate Blood Pressure O2 Sat by Pulse 100 100 100 Oximetry 08/19/20 08/19/20 08/19/20 14:40 14:45 14:50 Temperature Pulse Rate 76 81 75 Respiratory Rate Blood Pressure O2 Sat by Pulse 100 100 100 Oximetry 08/19/20 08/19/20 08/19/20 14:55 14:57 15:00 Temperature 97.9 F Pulse Rate 81 76 79 Respiratory Rate Blood Pressure 113/69 O2 Sat by Pulse 100 100 Oximetry 08/19/20 08/19/20 08/19/20 15:05 15:10 15:15 Temperature Pulse Rate 86 77 85 Respiratory Rate Blood Pressure O2 Sat by Pulse 99 99 99 Oximetry 08/19/20 08/19/20 08/19/20 15:20 15:25 15:30 Temperature Pulse Rate 84 83 87 Respiratory Rate Blood Pressure O2 Sat by Pulse 99 98 98 Oximetry 08/19/20 08/19/20 08/19/20 15:35 15:40 15:45 Temperature Pulse Rate 85 88 87 Respiratory Rate Blood Pressure O2 Sat by Pulse 98 98 98 Oximetry 08/19/20 08/19/20 08/19/20 15:50 15:55 15:56 Temperature Pulse Rate 88 81 86 Respiratory Rate Blood Pressure 117/70 O2 Sat by Pulse 95 98 Oximetry 08/19/20 08/19/20 08/19/20 16:00 16:05 16:10 Temperature Pulse Rate 94 H 84 87 Respiratory Rate Blood Pressure O2 Sat by Pulse 99 99 97 Oximetry 08/19/20 08/19/20 08/19/20 16:15 16:20 16:35 Temperature Pulse Rate 86 79 Respiratory Rate Blood Pressure O2 Sat by Pulse 98 99 59 L Oximetry 08/19/20 08/19/20 08/19/20 16:36 16:40 16:45 Temperature Pulse Rate 96 H 85 93 H Respiratory Rate Blood Pressure O2 Sat by Pulse 78 L 99 97 Oximetry 08/19/20 08/19/20 08/19/20 16:50 16:56 16:58 Temperature Pulse Rate 96 H 101 H 98 H Respiratory Rate Blood Pressure O2 Sat by Pulse 97 98 84 Oximetry 08/19/20 08/19/20 08/19/20 17:01 17:06 17:11 Temperature Pulse Rate 102 H 84 90 Respiratory Rate Blood Pressure O2 Sat by Pulse 99 98 98 Oximetry 08/19/20 08/19/20 08/19/20 17:16 17:21 17:26 Temperature Pulse Rate 86 89 82 Respiratory Rate Blood Pressure O2 Sat by Pulse 99 99 99 Oximetry 08/19/20 08/19/20 08/19/20 17:31 17:36 17:41 Temperature Pulse Rate 85 84 86 Respiratory Rate Blood Pressure O2 Sat by Pulse 98 97 98 Oximetry 08/19/20 17:46 Temperature Pulse Rate 92 H Respiratory Rate Blood Pressure O2 Sat by Pulse 100 Oximetry - Exam Breasts: deferred Cardiovascular: Regular rate Lungs: Normal air movement Abdomen: Present: normal appearance, soft Vulva: both: normal Uterus: Present: normal FHR: category 1 Uterine Contraction Monitor Mode: External Cervical Dilatation: 2 Cervical Effacement Percentage: 50 station: -3 Uterine Contraction Pattern: Irregular Uterine Tone Measurement Phase: Resting Uterine Contraction Intensity: Mild - Labs Labs: Abnormal Labs 08/17/20 08/18/20 08/19/20 22:14 16:10 16:41 RDW 12.7 L POC Glucose 111 H 61 L Laboratory Results - last 24 hr 08/18/20 08/19/20 08/19/20 16:10 00:12 08:29 POC Glucose 111 H 94 82 08/19/20 16:41 POC Glucose 61 L
[2020-08-19] MEDS ORDERED: AMPICILLIN/NS 2 GM/100 ML 2 GM/100 ML BAG IV ONE (19:27)
[2020-08-20] MEDS: AMPICILLIN/NS 1 GM/50 ML 1 GM/50 ML BAG IV SCH ×3 (00:29→07:45)
[2020-08-20] MEDS: fentaNYL 100 MCG/2 ML INJ IV PRN ×2 (00:43→12:37)
--- NOTE | 2020-08-20 08:06 | Progress Note ---
Assessment and Plan A: 25 y.o. @ 36.6 wks, IOL d/t oligohydramnios, GDM. Cervical exam 2.5/50/-2. P: Cervidil was removed @ 0545 am. Will allow for clear liquid diet. Start Pitocin per Protocol. Subjective - Subjective Date of service: 08/20/20 (Pt feeling some contractions) Principal diagnosis: IUP @ 36.6 weeks, IOL d/t GDM ,Oligo Patient reports: movement normal, contractions, no new complaints, no loss of fluid, no vaginal bleeding Objective - Vital Signs Vital Signs: Vital Signs - 12hr 08/19/20 08/19/20 08/19/20 20:13 20:18 20:23 Temperature Pulse Rate 91 H 91 H 93 H Respiratory Rate Blood Pressure O2 Sat by Pulse 99 98 99 Oximetry 08/19/20 08/19/20 08/19/20 20:28 20:33 20:35 Temperature Pulse Rate 88 90 89 Respiratory Rate Blood Pressure O2 Sat by Pulse 99 98 76 L Oximetry 08/19/20 08/19/20 08/19/20 20:38 20:43 20:48 Temperature Pulse Rate 87 89 84 Respiratory Rate Blood Pressure O2 Sat by Pulse 98 100 100 Oximetry 08/19/20 08/19/20 08/19/20 20:53 20:56 20:58 Temperature Pulse Rate 94 H 91 H 89 Respiratory Rate Blood Pressure 114/61 O2 Sat by Pulse 100 98 Oximetry 08/19/20 08/19/20 08/19/20 21:18 21:23 21:28 Temperature Pulse Rate 95 H 87 88 Respiratory Rate Blood Pressure O2 Sat by Pulse 99 97 99 Oximetry 08/19/20 08/19/20 08/19/20 21:33 21:38 21:43 Temperature Pulse Rate 87 92 H 86 Respiratory Rate Blood Pressure O2 Sat by Pulse 98 98 98 Oximetry 08/19/20 08/19/20 08/19/20 21:48 21:53 21:58 Temperature Pulse Rate 86 87 75 Respiratory Rate Blood Pressure O2 Sat by Pulse 97 98 99 Oximetry 08/19/20 08/19/20 08/19/20 22:03 22:08 22:13 Temperature Pulse Rate 86 80 76 Respiratory Rate Blood Pressure O2 Sat by Pulse 100 99 100 Oximetry 08/19/20 08/19/20 08/19/20 22:19 22:24 22:29 Temperature Pulse Rate 78 82 80 Respiratory Rate Blood Pressure O2 Sat by Pulse 100 100 100 Oximetry 08/19/20 08/19/20 08/19/20 22:34 22:39 22:50 Temperature Pulse Rate 85 94 H 99 H Respiratory Rate Blood Pressure O2 Sat by Pulse 100 100 98 Oximetry 08/19/20 08/19/20 08/19/20 22:55 22:57 23:00 Temperature Pulse Rate 88 90 80 Respiratory Rate Blood Pressure 133/61 O2 Sat by Pulse 98 98 Oximetry 08/19/20 08/19/20 08/20/20 23:56 23:58 00:12 Temperature Pulse Rate 90 80 91 H Respiratory Rate Blood Pressure 119/63 O2 Sat by Pulse 98 100 Oximetry 08/20/20 08/20/20 08/20/20 00:17 00:22 00:28 Temperature Pulse Rate 74 77 81 Respiratory Rate Blood Pressure O2 Sat by Pulse 99 99 99 Oximetry 08/20/20 08/20/20 08/20/20 00:33 00:38 00:43 Temperature Pulse Rate 76 84 85 Respiratory Rate Blood Pressure O2 Sat by Pulse 100 99 99 Oximetry 08/20/20 08/20/20 08/20/20 00:48 00:53 00:58 Temperature Pulse Rate 78 78 81 Respiratory Rate Blood Pressure O2 Sat by Pulse 97 97 98 Oximetry 08/20/20 08/20/20 08/20/20 01:03 01:08 01:13 Temperature Pulse Rate 85 78 80 Respiratory Rate Blood Pressure O2 Sat by Pulse 97 97 97 Oximetry 08/20/20 08/20/20 08/20/20 01:18 01:23 01:28 Temperature Pulse Rate 81 85 77 Respiratory Rate Blood Pressure O2 Sat by Pulse 97 96 97 Oximetry 08/20/20 08/20/20 08/20/20 01:33 01:38 01:43 Temperature Pulse Rate 84 80 77 Respiratory Rate Blood Pressure O2 Sat by Pulse 97 97 98 Oximetry 08/20/20 08/20/20 08/20/20 01:48 01:53 01:58 Temperature Pulse Rate 77 78 77 Respiratory Rate Blood Pressure O2 Sat by Pulse 97 98 98 Oximetry 08/20/20 08/20/20 08/20/20 02:03 02:08 02:13 Temperature Pulse Rate 76 75 71 Respiratory Rate Blood Pressure O2 Sat by Pulse 99 98 99 Oximetry 08/20/20 08/20/20 08/20/20 02:21 02:27 02:32 Temperature 97.8 F Pulse Rate 78 78 Respiratory 16 Rate Blood Pressure O2 Sat by Pulse 97 97 Oximetry 08/20/20 08/20/20 08/20/20 02:37 02:42 02:47 Temperature Pulse Rate 90 87 88 Respiratory Rate Blood Pressure O2 Sat by Pulse 97 98 98 Oximetry 08/20/20 08/20/20 08/20/20 02:52 02:57 03:02 Temperature Pulse Rate 76 75 79 Respiratory Rate Blood Pressure O2 Sat by Pulse 99 98 97 Oximetry 08/20/20 08/20/20 08/20/20 03:07 03:12 03:17 Temperature Pulse Rate 80 79 82 Respiratory Rate Blood Pressure O2 Sat by Pulse 97 97 98 Oximetry 08/20/20 08/20/20 08/20/20 03:22 03:27 03:32 Temperature Pulse Rate 81 88 83 Respiratory Rate Blood Pressure O2 Sat by Pulse 98 99 98 Oximetry 08/20/20 08/20/20 08/20/20 03:37 03:42 03:47 Temperature Pulse Rate 84 81 78 Respiratory Rate Blood Pressure O2 Sat by Pulse 98 99 99 Oximetry 08/20/20 08/20/20 08/20/20 03:52 03:57 04:02 Temperature Pulse Rate 87 82 78 Respiratory Rate Blood Pressure O2 Sat by Pulse 100 100 100 Oximetry 08/20/20 08/20/20 08/20/20 04:07 04:12 04:17 Temperature Pulse Rate 82 80 79 Respiratory Rate Blood Pressure O2 Sat by Pulse 98 98 97 Oximetry 08/20/20 08/20/20 08/20/20 04:22 04:27 04:32 Temperature Pulse Rate 83 80 85 Respiratory Rate Blood Pressure O2 Sat by Pulse 98 98 97 Oximetry 08/20/20 08/20/20 08/20/20 04:37 04:42 04:47 Temperature Pulse Rate 86 77 87 Respiratory Rate Blood Pressure O2 Sat by Pulse 98 98 98 Oximetry 08/20/20 08/20/20 08/20/20 04:52 04:57 05:02 Temperature Pulse Rate 88 77 88 Respiratory Rate Blood Pressure O2 Sat by Pulse 96 98 99 Oximetry 08/20/20 08/20/20 08/20/20 05:07 05:21 05:26 Temperature Pulse Rate 78 97 H 86 Respiratory Rate Blood Pressure O2 Sat by Pulse 98 93 95 Oximetry 08/20/20 08/20/20 08/20/20 05:27 05:31 05:36 Temperature Pulse Rate 86 78 80 Respiratory Rate Blood Pressure O2 Sat by Pulse 94 97 97 Oximetry 08/20/20 08/20/20 08/20/20 05:41 07:42 07:47 Temperature Pulse Rate 83 95 H 94 H Respiratory Rate Blood Pressure O2 Sat by Pulse 98 97 98 Oximetry 08/20/20 08/20/20 07:52 07:57 Temperature Pulse Rate 96 H 92 H Respiratory Rate Blood Pressure O2 Sat by Pulse 99 98 Oximetry - Exam Breasts: deferred Cardiovascular: Regular rate Lungs: Normal air movement Abdomen: Present: normal appearance, soft Vulva: both: normal Uterus: Present: normal FHR: category 1 Uterine Contraction Monitor Mode: External Cervical Dilatation: 2.5 Cervical Effacement Percentage: 50 station: -2 Uterine Contraction Pattern: Irregular Uterine Tone Measurement Phase: Resting Uterine Contraction Intensity: Mild - Labs Labs: Abnormal Labs 08/17/20 08/18/20 08/19/20 22:14 16:10 16:41 RDW 12.7 L POC Glucose 111 H 61 L Laboratory Results - last 24 hr 08/19/20 08/19/20 08/19/20 08:29 16:41 18:53 POC Glucose 82 61 L Syphilis IgG Antibody Nonreactive 08/19/20 22:31 POC Glucose 79 Syphilis IgG Antibody
--- NOTE | 2020-08-20 14:20 | Progress Note ---
Assessment and Plan A: 25 y.o. @ 36.6, failed IOL for Oligo, GDM. P: Pt wishes to precede with . Dr. Barajas aware. Consent signed and on the chart. Subjective - Subjective Date of service: 08/20/20 (3 minute deceleration noted, Pitocin turned off. ) Principal diagnosis: IUP @ 36.6 weeks, IOL d/t GDM ,Oligo Patient reports: movement normal, contractions, no new complaints, no loss of fluid, no vaginal bleeding Objective - Vital Signs Vital Signs: Vital Signs - 12hr 08/20/20 08/20/20 08/20/20 02:21 02:27 02:32 Temperature 97.8 F Pulse Rate 78 78 Respiratory 16 Rate O2 Sat by Pulse 97 97 Oximetry 08/20/20 08/20/20 08/20/20 02:37 02:42 02:47 Temperature Pulse Rate 90 87 88 Respiratory Rate O2 Sat by Pulse 97 98 98 Oximetry 08/20/20 08/20/20 08/20/20 02:52 02:57 03:02 Temperature Pulse Rate 76 75 79 Respiratory Rate O2 Sat by Pulse 99 98 97 Oximetry 08/20/20 08/20/20 08/20/20 03:07 03:12 03:17 Temperature Pulse Rate 80 79 82 Respiratory Rate O2 Sat by Pulse 97 97 98 Oximetry 08/20/20 08/20/20 08/20/20 03:22 03:27 03:32 Temperature Pulse Rate 81 88 83 Respiratory Rate O2 Sat by Pulse 98 99 98 Oximetry 08/20/20 08/20/20 08/20/20 03:37 03:42 03:47 Temperature Pulse Rate 84 81 78 Respiratory Rate O2 Sat by Pulse 98 99 99 Oximetry 08/20/20 08/20/20 08/20/20 03:52 03:57 04:02 Temperature Pulse Rate 87 82 78 Respiratory Rate O2 Sat by Pulse 100 100 100 Oximetry 08/20/20 08/20/20 08/20/20 04:07 04:12 04:17 Temperature Pulse Rate 82 80 79 Respiratory Rate O2 Sat by Pulse 98 98 97 Oximetry 08/20/20 08/20/20 08/20/20 04:22 04:27 04:32 Temperature Pulse Rate 83 80 85 Respiratory Rate O2 Sat by Pulse 98 98 97 Oximetry 08/20/20 08/20/2021 04:37 04:42 04:47 Temperature Pulse Rate 86 77 87 Respiratory Rate O2 Sat by Pulse 98 98 98 Oximetry 08/20/20 08/20/20 08/20/20 04:52 04:57 05:02 Temperature Pulse Rate 88 77 88 Respiratory Rate O2 Sat by Pulse 96 98 99 Oximetry 08/20/20 08/20/20 08/20/20 05:07 05:21 05:26 Temperature Pulse Rate 78 97 H 86 Respiratory Rate O2 Sat by Pulse 98 93 95 Oximetry 08/20/20 08/20/20 08/20/20 05:27 05:31 05:36 Temperature Pulse Rate 86 78 80 Respiratory Rate O2 Sat by Pulse 94 97 97 Oximetry 08/20/20 08/20/20 08/20/20 05:41 07:42 07:47 Temperature Pulse Rate 83 95 H 94 H Respiratory Rate O2 Sat by Pulse 98 97 98 Oximetry 08/20/20 08/20/20 08/20/20 07:52 07:57 08:02 Temperature Pulse Rate 96 H 92 H 86 Respiratory Rate O2 Sat by Pulse 99 98 98 Oximetry 08/20/20 08/20/20 08/20/20 08:07 08:12 08:17 Temperature Pulse Rate 90 94 H 86 Respiratory Rate O2 Sat by Pulse 98 98 98 Oximetry 08/20/20 08/20/20 08/20/20 08:22 08:27 08:32 Temperature Pulse Rate 91 H 91 H 96 H Respiratory Rate O2 Sat by Pulse 100 100 100 Oximetry 08/20/20 08/20/20 08/20/20 08:37 08:42 08:47 Temperature Pulse Rate 92 H 91 H 93 H Respiratory Rate O2 Sat by Pulse 100 100 100 Oximetry 08/20/20 08/20/20 08/20/20 08:52 08:57 09:02 Temperature Pulse Rate 90 89 91 H Respiratory Rate O2 Sat by Pulse 100 100 100 Oximetry 08/20/20 08/20/20 08/20/20 09:07 12:36 12:41 Temperature Pulse Rate 96 H 89 83 Respiratory Rate O2 Sat by Pulse 100 100 99 Oximetry 08/20/20 08/20/20 08/20/20 12:46 12:51 12:56 Temperature Pulse Rate 88 86 82 Respiratory Rate O2 Sat by Pulse 98 99 100 Oximetry 08/20/20 08/20/20 08/20/20 13:01 13:06 13:11 Temperature Pulse Rate 83 80 81 Respiratory Rate O2 Sat by Pulse 100 98 99 Oximetry 08/20/20 08/20/20 08/20/20 13:16 13:21 13:26 Temperature Pulse Rate 82 74 84 Respiratory Rate O2 Sat by Pulse 100 100 100 Oximetry 08/20/20 08/20/20 08/20/20 13:31 13:36 13:41 Temperature Pulse Rate 74 83 76 Respiratory Rate O2 Sat by Pulse 100 100 99 Oximetry 08/20/20 08/20/20 08/20/20 13:46 13:51 13:56 Temperature Pulse Rate 82 76 80 Respiratory Rate O2 Sat by Pulse 100 99 100 Oximetry 08/20/20 08/20/20 14:01 14:06 Temperature Pulse Rate 86 86 Respiratory Rate O2 Sat by Pulse 100 100 Oximetry - Exam Narrative Exam: Was reviewing past monitor strip with RN when we both noticed that there was a deceleration occurring. We both presented to the room to adjust the monitor, turn patient to left lateral, initiate IV fluid bolus, and turn off the pitocin. Cervical exam was 2.5/50/-3, which was unchanged from previous exams. Discussed d/t multiple heart rate decelerations and unchanged cervical exam, pt will need a at this time. Pt agrees to . Dr. Barajas updated on patient's wish, and labor progress. Consents signed and on the chart. Breasts: deferred Cardiovascular: Regular rate Lungs: Normal air movement Abdomen: Present: normal appearance Vulva: both: normal FHR: category 2 (2 minute decleration. Pitocin turned off. IV fluid bolus started. ) Cervical Dilatation: 2.5 Cervical Effacement Percentage: 50 station: -3 Uterine Contraction Pattern: Irregular Uterine Tone Measurement Phase: Resting Uterine Contraction Intensity: Mild - Labs Labs: Abnormal Labs 08/17/20 08/18/20 08/19/20 22:14 16:10 16:41 RDW 12.7 L POC Glucose 111 H 61 L Laboratory Results - last 24 hr 08/19/20 08/19/20 08/19/20 16:41 18:53 22:31 POC Glucose 61 L 79 Syphilis IgG Antibody Nonreactive
[2020-08-20] MEDS ORDERED: NalbUPHINE 10 MG/1 ML INJ IV PRN (14:30)
[2020-08-20] MEDS ORDERED: HYDROmorphone 1 MG/1 ML INJ IV PRN (14:30)
[2020-08-20] MEDS ORDERED: diphenhydrAMINE 50 MG/ML VIAL IV PRN (14:30)
[2020-08-20] MEDS ORDERED: PROMETHAZINE 25 MG RECT SUPP PR PRN (14:30)
[2020-08-20] MEDS ORDERED: PHENYLEPHRINE/NS 1,000 MCG/10 ML SYRINGE (OR USE) IV ONE (14:30)
--- NOTE | 2020-08-20 14:31 | Anesthesia Day of Surgery ---
Anesthesia Day of Surgery - Day of Surgery Patient Examined: Yes Patient H&P Reviewed: Yes Patient is NPO: Yes Beta Blockers: No Cardiac Clearance: No Pulmonary Clearance: No Bryant's Test: N/A
--- NOTE | 2020-08-20 14:32 | Anesthesia Consultation ---
Anesthesia Consult and Med Hx Date of service: 08/20/20 - Airway Anesthetic Teeth Evaluation: Good ROM Head & Neck: Adequate Mental/Hyoid Distance: Adequate Mallampati Class: Class II Intubation Access Assessment: Probably Good - Pulmonary Exam CTA: Yes - Cardiac Exam Cardiac Exam: RRR - Pre-Operative Health Status ASA Pre-Surgery Classification: ASA2 Proposed Anesthetic Plan: Spinal Nerve Block: TAP - Pulmonary Hx Smoking: No Hx Asthma: No COPD: No Hx Pneumonia: Yes (walking pneumonia as a child) Hx Sleep Apnea: No - Cardiovascular System Hx Hypertension: No Hx Heart Attack/AMI: No Hx Angina: No - Central Nervous System Hx Seizures: No Hx Psychiatric Problems: Yes (Depression, Schizoprenia, Bipolar Disorder) - Gastrointestinal Hx Gastroesophageal Reflux Disease: No - Endocrine Hx Renal Disease: No Hx End Stage Renal Disease: No Hx Insulin Dependent Diabetes: Yes (gestational) Hx Non-Insulin Dependent Diabetes: No Hx Hypothyroidism: No Hx Hyperthyroidism: No - Hematic Hx Anemia: No Hx Sickle Cell Disease: No - Other Systems Hx Alcohol Use: No
[2020-08-20] MEDS ORDERED: ONDANSETRON 4 MG/2 ML INJ ONE ×2 (14:35)
[2020-08-20] MEDS ORDERED: KETOROLAC 30 MG/1 ML INJ ONE (14:35)
[2020-08-20] MEDS ORDERED: BUPIVACAINE/PF (0.5%) 5 MG/1 ML 30 ML VIAL INFILTRATI ONE (14:35)
[2020-08-20] MEDS ORDERED: dexAMETHasone 20 MG/5 ML VIAL ONE (14:35)
[2020-08-20] MEDS ORDERED: ceFAZolin/Water 2 GM/20 ML 2 GM/20 ML SYRINGE IV ONE (14:40)
[2020-08-20 14:48] LABS: Basophils % (Auto) 0.6 % (0.0-1.8); Eosinophils # (Auto) 0.1 K/mm3 (0.0-0.4); Eosinophils % (Auto) 1.2 % (0.0-4.3); Hematocrit 38.9 % (30.3-42.9); Lymphocytes # (Auto) 1.6 K/mm3 (1.2-5.4); Lymphocytes % (Auto) 19.6 % (13.4-35.0); Mean Corpuscular HGB Conc 33 % (30-34); Mean Corpuscular Volume 91 fl (79-97); Monocytes # (Auto) 0.3 K/mm3 (0.0-0.8); Monocytes % (Auto) 4.1 % (0.0-7.3); Platelet Count 250 K/mm3 (140-440); Red Blood Count 4.26 M/mm3 (3.65-5.03); Red Cell Distribution Width 13.2 % (13.2-15.2)
[2020-08-20] MEDS ORDERED: OXYTOCIN DRIP 30 UNITS/500 ML BAG IV SCH ×2 (15:00→19:47)
[2020-08-20] MEDS ORDERED: BICITRA ORAL LIQD 30ML PO ONE (15:00)
[2020-08-20] MEDS ORDERED: METOCLOPRAMIDE 10 MG/2 ML INJ IV ONE (15:00)
[2020-08-20] MEDS ORDERED: FAMOTIDINE 20 MG/2 ML INJ IV ONE (15:00)
--- NOTE | 2020-08-20 15:10 | Event Note ---
Date: 08/20/20 Patient informed the risks of the surgery include bleeding possibly bleeding heavy enough to require blood transfusion, infection possible damage to bowel bladder ureter. All questions answered. Patient agrees to proceed
--- NOTE | 2020-08-20 15:28 | Progress Note ---
Spinal Anesthesia Block - Spinal Anesthesia Block Start Time: 15:05 Stop Time: 15:17 Performed by:: LUISA GARCIA (Jesús GILES) Procedure: Spinal anesthesia block is being performed for [C/S]. H&P, labs have been reviewed. Patient's questions and concerns have been answered. Informed consent has been performed. Timeout has was performed. Patient in sitting position on side of bed. Sterile prep and drape was performed. 3 mL 1% lid ocaine skin wheal at L [3]-L [4]. Needle introducer advanced. 25-gauge spinal needle advanced, [+] CSF [-] blood. [Marcaine 10mg and Precedex 5mcg] Spinal dose was given. All needles removed. Patient tolerated procedure well.
[2020-08-20] MEDS ORDERED: WATER FOR IRRIG STERILE 1,500 ML BOTTLE IR ONE (15:33)
[2020-08-20] MEDS ORDERED: SODIUM CHLORIDE 0.9% IRR 1,500 ML BOTTLE IR ONE (15:33)
--- NOTE | 2020-08-20 16:32 | Operative Report ---
Operative Report Operative Report: Date of procedure: August 20, 2020 Pre-operative diagnosis: Intrauterine at 36 weeks with gestational diabetes and oligohydramnios, nonreassuring heart tracing and failure of labor induction Post-operative diagnosis: Same Procedure name(s): Primary low transverse section Surgeon: Carlos Barajas MD Sister Superior: Milena Clarke, certified nurse utility accounts director Anesthesia: Spinal EBL: 500 cc Complications: None Findings: Patient with normal uterus tubes and ovaries bilaterally. Male infant weight 6 pounds 10 ounces. Apgars 8 at 1 minute and 9 at 5 minutes Specimen(s): None Procedure: The patient was brought to the operating room. Her spinal was placed without any complications. She was then placed in left lateral tilt. Prepped and draped in the usual sterile manner. After testing for adequate anesthesia level, a Pfannenstiel incision was made. This incision was taken down to the fascia. The fascia was then nicked in the midline. This incision was extended out laterally with Elias scissors. The fascia was then sharply and bluntly from the underlying rectus muscles. The rectus muscles were bluntly and sharply . The peritoneum was then entered with the flux plant operator's fingers. This incision was spread vertically with care not to damage the bladder below. The Yovani self-retaining tractor was then placed without any difficulty. The bladder flap was then formed sharply and bluntly with Metzenbaum scissors. A transverse incision was made in lower uterine segment. This incision was extended laterally with the operators fingers. The amniotic sac was then entered bluntly with the flux plant operator's fingers. The infant was delivered from the vertex position. Bulb suction on the mother's abdomen. Cord was double clamped and cut. The was then passed to the nursery personnel who were in attendance. The above scores were given by the nursery personnel. The placenta was then bluntly removed. The uterus was then externalized and wiped clean the remaining products. The uterine incision was closed in layers. The first incision was closed in a locking manner using 0 Vicryl. This was followed by imbricating stitch also with 0 Vicryl. This closure was hemostatic. The bladder flap was copiously irrigated and found to be hemostatic. The pelvis was copiously irrigated and found to be hemostatic. The uterus was then placed back to the patient's abdomen. The retractors were removed. The rectus muscles were inspected and found to be hemostatic. The fascia was then closed in a running manner using 0 Vicryl. This incision was hemostatic irrigation Bovie. Subcu tickler space was closed with 0 Vicryl. The skin was reapproximated with 4-0 Vicryl subcuticularly. Dermabond was placed over the skin closure. The patient tolerated procedure well. Her urine was clear. The was admitted to the well baby nursery. The patient was accompanied to recovery room in good condition. Instrument count correct times 3.
--- NOTE | 2020-08-20 16:44 | Progress Note ---
Regional Anesthesia Block - Regional Anesthesia Block Start Time: 16:17 Stop Time: 16:23 Performed By:: LUISA GARCIA (Jesús GILES) Procedure: Patient consented for TAP block for post surgical pain management. Patient identified, monitors placed, and time out performed. Mid axillary TAP identified bilaterally via ultrasound. Skin prepped bilaterally with [chlorhexidine] and [20g stimuplex] needle advanced to the TAP. 35ml [Marcaine 0.215% with 25mcg Precedex and Decadron 5mg] injected under ultrasound guidance on the [left] side. 35ml [Marcaine 0.215% with 25mcg Precedex and Decadron 5mg] injected under ultrasound guidance on the [right] side.
[2020-08-20] MEDS ORDERED: SIMETHICONE 80 MG CHEW TAB PO PRN (19:47)
[2020-08-20] MEDS ORDERED: MAGNESIUM HYDROXIDE (MOM) ORAL LIQD UDC PO PRN (19:47)
[2020-08-20] MEDS ORDERED: WITCH HAZEL/ GLYCERIN PAD TP PRN (19:47)
[2020-08-20] MEDS ORDERED: NALOXONE 0.4 MG/1 ML INJ IV PRN (19:47)
[2020-08-20] MEDS ORDERED: LANOLIN/ZINC/DIMETHICONE (LANSINOH) 7 GM TP PRN (19:47)
[2020-08-20] MEDS: KETOROLAC 30 MG/1 ML INJ IV SCH (20:31)
[2020-08-20] MEDS ORDERED: D5W/LACTATED RINGERS 1,000 ML IV SCH (20:47)
[2020-08-20] MEDS: ceFAZolin/NS 1 GM/50 ML 1 GM/50 ML BAG IV SCH (21:35)
[2020-08-21] MEDS: HYDROcodone/ACETAMINOPHEN 5-325 MG TAB PO PRN ×2 (01:04→06:56)
[2020-08-21] MEDS: KETOROLAC 30 MG/1 ML INJ IV SCH ×2 (03:28→12:05)
--- NOTE | 2020-08-21 05:52 | Progress Note ---
Assessment and Plan - Patient Problems (1) delivery delivered Onset Date: ~08/20/20 Current Visit: Yes Status: Acute Plan to address problem: Pt awake caring for NB. Pt c/o back pain and stiffness. Encouraged to be OOB. VSS FF below umb lochia small Incision D&I H&H pending Doing well s/p P: continue pathway Advance diet and activity as tolerated. Subjective - Subjective Date of service: 08/21/20 (c/o back pain Encouraged to be out of the bed) Principal diagnosis: Day #1 s/p section Patient reports: appetite normal, voiding normally, pain well controlled, ambulating normally : doing well Objective - Vital Signs Latest vital signs: Vital Signs Temp Pulse Resp BP Pulse Ox 08/21/20 02:18 97.6 F 87 18 111/61 98 08/20/20 21:30 97.5 F L 84 18 118/66 98 08/20/20 18:00 97.8 F 77 20 126/77 98 08/20/20 17:30 97.8 F 66 16 139/58 98 08/20/20 17:15 68 18 136/73 98 08/20/20 17:00 67 18 137/50 98 08/20/20 16:45 62 16 128/78 98 08/20/20 16:30 72 18 120/75 99 08/20/20 16:25 70 16 129/79 99 08/20/20 16:21 74 17 117/65 100 08/20/20 16:16 83 11 L 106/63 98 08/20/20 16:11 97.6 F 76 14 117/66 98 08/20/20 14:06 86 100 08/20/20 14:01 86 100 08/20/20 13:56 80 100 08/20/20 13:51 76 99 08/20/20 13:46 82 100 08/20/20 13:41 76 99 08/20/20 13:36 83 100 08/20/20 13:31 74 100 08/20/20 13:26 84 100 08/20/20 13:21 74 100 08/20/20 13:16 82 100 08/20/20 13:11 81 99 08/20/20 13:06 80 98 08/20/20 13:01 83 100 08/20/20 12:56 82 100 08/20/20 12:51 86 99 08/20/20 12:46 88 98 08/20/20 12:41 83 99 08/20/20 12:36 89 100 08/20/20 09:07 96 H 100 08/20/20 09:02 91 H 100 08/20/20 08:57 89 100 08/20/20 08:52 90 100 08/20/20 08:47 93 H 100 08/20/20 08:42 91 H 100 08/20/20 08:37 92 H 100 08/20/20 08:32 96 H 100 08/20/20 08:27 91 H 100 08/20/20 08:22 91 H 100 08/20/20 08:17 86 98 08/20/20 08:12 94 H 98 08/20/20 08:07 90 98 08/20/20 08:02 86 98 08/20/20 07:57 92 H 98 08/20/20 07:52 96 H 99 08/20/20 07:47 94 H 98 08/20/20 07:42 95 H 97 Intake and Output 08/20/20 08/20/20 08/21/20 14:59 22:59 06:59 Intake Total 413.312 7273 Output Total 4750 Balance 105.867 -2950 Intake: IV 394.760 0115 PITOCin/NS 30 UNIT/500ML 105.867 30 units In 500 ml @ 2 mls/hr IV TITR MAKAYLA Rx#: [id number] Intake, Free Water 600 Output: Urine 4750 Indwelling Catheter 1500 Uretheral (Olivo) 3150 Other: Total, Output Amount 1500 Estimated Blood Loss 300 - Exam Breasts: Present: normal Cardiovascular: Present: Regular rate Lungs: Present: Normal air movement Abdomen: Present: normal appearance, soft Uterus: Present: normal, fundal height below umbilicus Extremities: Present: normal Deep Tendon Reflex Grade: Normal +2 Incision: Present: normal, dry, intact - Labs Labs: Abnormal lab results 08/20/20 Range/Units 14:30 Seg Neutrophils % 74.5 H (40.0-70.0) %
[2020-08-21 06:07] LABS: Hematocrit 31.9 % (30.3-42.9); Hemoglobin 10.6 gm/dl (10.1-14.3)
[2020-08-21] MEDS: ceFAZolin/NS 1 GM/50 ML 1 GM/50 ML BAG IV SCH (06:57)
[2020-08-21] MEDS: PRENATAL VIT27-FE FUMARATE-FOLIC ACID VIT TAB PO SCH (12:05)
[2020-08-21] MEDS: FERROUS SULFATE 325 MG TAB PO SCH (12:05)
[2020-08-21] MEDS ORDERED: IBUPROFEN 800 MG TAB PO PRN (16:33)
[2020-08-21] MEDS: oxyCODONE /ACETAMINOPHEN 5-325MG TAB PO PRN ×2 (16:46→23:20)
--- NOTE | 2020-08-21 19:01 | Post Anesthesia Evaluation ---
- Post Anesthesia Evaluation Patient Participated: Yes Airway Patent: Yes Stable Respiratory Function: Yes Nausea/Vomiting: No Temp > 96.8F: Yes Pain Manageable: Yes Adequeate Hydration: Yes Anesthesia Complications: No Block Receding Appropriately: Yes
--- NOTE | 2020-08-22 05:21 | Discharge Summary ---
Providers - Providers Date of Admission: 08/18/20 14:52 Date of discharge: 08/22/20 Attending physician: CAMRON VELAZQUEZ 08/20/20 19:47 Consult to Wharf Worker [CONS] Routine Reason For Exam: Primary care physician: CAMRON VELAZQUEZ Hospitalization Reason for admission: induction of labor Delivery: Procedure: primary low transverse Episiotomy: none Laceration: none Incision: normal, dry, intact Other procedures: none complications: none Discharge diagnosis: IUP at term delivered baby: male Hospital course: uncomplicated section Non reassuring tracing remote from delivery Condition at discharge: Good Disposition: DC-01 TO HOME OR SELFCARE - Discharge Diagnoses (1) delivery delivered Status: Acute Comment: RTO 1 week postop care. Plan - Discharge Medications Prescriptions: Lidocain2.5%/Prilocai2.5% [Emla] 5 gm TP ONCE #1 tube Ferrous Sulfate [Feosol 325 MG tab] 325 mg PO BID #60 tablet Ibuprofen [Motrin 800 MG tab] 800 mg PO Q6H PRN #30 tablet PRN Reason: Pain oxyCODONE /ACETAMINOPHEN [Percocet 5/325 mg] 1 - 2 tab PO Q6HR PRN #20 tablet PRN Reason: Pain - Provider Discharge Summary Activity: routine, no sex for 6 weeks, no heavy lifting 4 weeks, no strenuous exercise Diet: routine Instructions: routine Additional instructions: [] Smoking cessation referral if applicable(refer to patient education folder for contact #) [] Refer to [facility] Booklet Call your doctor immediately for: * Fever > 100.5 * Heavy vaginal bleeding ( >1 pad per hour) * Severe persistent headache * Shortness of breath * Reddened, hot, painful area to leg or breast * Drainage or odor from incision. * Keep incision clean and dry at all times and follow doctor's instructions regarding bathing/showering - Follow up plan Follow up: CAMRON VELAZQUEZ MD [Primary Care Provider] - 7 Days (Congratulations! Please call [phone] to schedule your son's circumcision and your postoperative visit in 1 week. Bring the EMLA cream with you to his visit. Do NOT use at home. Take medications as prescribed. Call with concerns.)
--- NOTE | 2020-08-22 06:30 | Progress Note ---
Assessment and Plan - Patient Problems (1) delivery delivered Onset Date: ~08/20/20 Current Visit: Yes Status: Acute Plan to address problem: Pt awake with NB lying in her arms. Pt states she cannot move without her medication. Pt has been on Percocet 2 Q6hr Will decrease to 1 q6h to help transition to d/c. VSS FF below umb Lochia scant Incision D&I. H&H 03/18 drop r/t blood loss from surgery. Stable s/p . P: continue pathway Abdominal binder to help with support. Encouraged OOB Advance as tolerated. Subjective - Subjective Date of service: 08/22/20 (pt at first agreed to d/c then ask for one more day for pain mgt) Principal diagnosis: Day #2 s/p section Patient reports: appetite normal, voiding normally, pain poorly controlled, ambulating normally [place]: doing well Objective - Vital Signs Latest vital signs: Vital Signs Temp Pulse Resp BP BP Pulse Ox 08/22/20 06:06 18 08/22/20 00:10 97.5 F L 87 18 108/58 97 08/21/20 23:20 18 08/21/20 15:42 97.9 F 78 18 106/50 100 08/21/20 12:29 98.5 F 103 H 18 120/60 97 08/21/20 08:00 97.6 F 75 18 120/73 100 Intake and Output 08/21/20 08/21/20 08/22/20 14:59 22:59 06:59 Intake Total 170 720 240 Output Total 1100 1000 Balance -930 -280 240 Intake: IV 50 ANCEF/NS 1 GM/50 ML 1 gm 50 In 50 ml @ 100 mls/hr IV Q8H [facility] Rx#:[id number] Oral 120 720 240 Output: Urine 1100 1000 Void 1100 1000 Other: Total, Intake Amount 120 240 240 Total, Output Amount 600 600 # Voids Void 1 1 1 - Exam Breasts: Present: normal Cardiovascular: Present: Regular rate Lungs: Present: Normal air movement Abdomen: Present: normal appearance, soft Uterus: Present: normal, fundal height below umbilicus Extremities: Present: normal Deep Tendon Reflex Grade: Normal +2 Incision: Present: normal, dry, intact
[2020-08-22] MEDS: PRENATAL VIT27-FE FUMARATE-FOLIC ACID VIT TAB PO SCH (10:28)
[2020-08-22] MEDS: FERROUS SULFATE 325 MG TAB PO SCH (10:28)
[2020-08-22] MEDS: oxyCODONE /ACETAMINOPHEN 5-325MG TAB PO PRN ×2 (10:28→18:46)
[2020-08-22] MEDS: IBUPROFEN 800 MG TAB PO SCH ×2 (15:46→19:55)
[2020-08-23] MEDS: oxyCODONE /ACETAMINOPHEN 5-325MG TAB PO PRN ×3 (00:04→11:16)
--- NOTE | 2020-08-23 07:28 | Discharge Summary ---
Providers - Providers Date of Admission: 08/18/20 14:52 Date of discharge: 08/23/20 (Pt in good condition and can be discharged home. ) Attending physician: CAMRON VELAZQUEZ 08/20/20 19:47 Consult to [employer]arker Operator [CONS] Routine Reason For Exam: Primary care physician: CAMRON VELAZQUEZ Hospitalization Reason for admission: other (Observation, then IOL d/t GDM and Olig[place]) Delivery: Procedure: primary low transverse Episiotomy: none Laceration: none Incision: normal, dry, intact Other procedures: none complications: none Discharge diagnosis: delivery baby: male Hospital course: S: Pt doing well. Ambulating, voiding, and passing flatus without difficulty. BC: Paraguard IUD. O: VSS. Adequate I&O's. Fundus firm, normal amount of lochia noted. H/H 10.6/31.9. Incision open to air, intact, no drainage or s/sx of infection noted. A: 25 y.o. s/p primary d/t failed IOL, now in good condition and can be discharged home. P: Discharge home with instructions. To schedule an incision check and her son's circumcision appointment in the office in 1 week. Condition at discharge: Good Disposition: DC-01 TO HOME OR SELFCARE Plan - Discharge Medications Prescriptions: Lidocain2.5%/Prilocai2.5% [Emla] 5 gm TP ONCE #1 tube Ferrous Sulfate [Feosol 325 MG tab] 325 mg PO BID #60 tablet Ibuprofen [Motrin 800 MG tab] 800 mg PO Q6H PRN #30 tablet PRN Reason: Pain oxyCODONE /ACETAMINOPHEN [Percocet 5/325 mg] 1 - 2 tab PO Q6HR PRN #20 tablet PRN Reason: Pain - Provider Discharge Summary Activity: routine, no sex for 6 weeks, no heavy lifting 4 weeks, no strenuous exercise Diet: routine Instructions: routine Additional instructions: [] Smoking cessation referral if applicable(refer to patient education folder for contact #) [] Refer to [facility] Booklet Call your doctor immediately for: * Fever > 100.5 * Heavy vaginal bleeding ( >1 pad per hour) * Severe persistent headache * Shortness of breath * Reddened, hot, painful area to leg or breast * Drainage or odor from incision. * Keep incision clean and dry at all times and follow doctor's instructions regarding bathing/showering Congratulations on the of your baby boy!! Please schedule your your son's circumcision appointment in the [place] office in 1 week. You have been prescribed EMLA cream for your son's circumcision appointment. Please do not use this cream at home, but bring it with you to your son's circumcision appointment. Please schedule your incision check in the office in 1 week. Should you have any questions or concerns after discharge, please do not hesi yates to call the office at [phone]. - Follow up plan Follow up: CAMRON VELAZQUEZ MD [Primary Care Provider] - 7 Days (Congratulations! Please call [phone] to schedule your son's circumcision and your postoperative visit in 1 week. Bring the EMLA cream with you to his visit. Do NOT use at home. Take medications as prescribed. Call with concerns.)
[2020-08-23] MEDS: IBUPROFEN 800 MG TAB PO SCH ×2 (08:56→14:48)
[2020-08-23] MEDS: FERROUS SULFATE 325 MG TAB PO SCH (09:01)
[2020-08-23] MEDS: PRENATAL VIT27-FE FUMARATE-FOLIC ACID VIT TAB PO SCH (09:01)
[2020-08-23 15:31] VITALS: BP 124/83
== END 2020-08-23 16:10 | disposition home or self-care (01) | DRG 765 ==
LOC: TRG 16:52 → APU 16:53 → TRG 18:06 → LD 18:07 → OBSVTOIN 08-18 14:52 → OB 08-20 18:24
PROVIDERS: ADMIT Obstetrics & Gynecology; ATTEND Obstetrics & Gynecology
PROC: 10D00Z1 Extraction of Products of Conception, Low, Open Approach (ICD-10-PCS; principal; 2020-08-20)
DX: O24.420 Gestational diabetes mellitus in childbirth, diet controlled (principal); O60.14X0 Preterm labor third trimester with preterm delivery third trimester, not applicable or unspecified; O41.03X0 Oligohydramnios, third trimester, not applicable or unspecified; O76 Abnormality in fetal heart rate and rhythm complicating labor and delivery; Z20.828 Contact with and (suspected) exposure to other viral communicable diseases; O61.8 Other failed induction of labor; Z3A.36 36 weeks gestation of pregnancy; Z37.0 Single live birth; Z87.01 Personal history of pneumonia (recurrent); Z83.3 Family history of diabetes mellitus; Z82.49 Family history of ischemic heart disease and other diseases of the circulatory system; Z80.1 Family history of malignant neoplasm of trachea, bronchus and lung; Z80.8 Family history of malignant neoplasm of other organs or systems
CPT/HCPCS: 36415; 76815; 76819; 82962; 85014; 85018; 85025; 86592; 86850; 86900; 86901; G0378; J0290; J0690; J1100; J1170; J1885; J2370; J2405; J2590; J2765; J3010; J3490; J7120; J7121; Q0177; U0003